=== PATIENT | female | born 1945 | race Caucasian/White ===

== ENCOUNTER → 2022-07-03 | Outpatient (CLI) | payer MEDICARE, BC ==
--- NOTE | 2022-07-16 18:41 | MM ---
Reason for Exam: Screening (asymptomatic). Last mammogram was performed 1 year(s) and 3 month(s) ago. Patient History: Menarche at age 13. First Full-Term at age 18. Postmenopausal. 2001, MG pre op needle loc RT on the Right side. Maternal aunt had breast cancer under age 50. Risk Values: Naty 5 year model risk: 1.3%. NCI Lifetime model risk: 2.4%. Prior Study Comparison: 03/27/2020 Bilateral MG screening mammo w CAD - 2, [place]. 03/28/2021 Bilateral MG screening mammo w [facility] - 2, [place]. Tissue Density: The breast tissue is heterogeneously dense. This may lower the sensitivity of mammography. Findings: Analyzed By CAD. No significant interval change. Benign calcifications present bilaterally. No suspicious groups of microcalcifications, spiculated or lobular masses, architectural distortion or other secondary signs of malignancy are mammographically apparent. Overall Assessment: Benign, BI-RAD 2 Management: Screening Mammogram of both breasts in 1 year. A negative mammogram report should not preclude additional follow up of suspicious palpable abnormalities. Patient should continue monthly self breast exam. A clinical breast exam by your physician is recommended on an annual basis and results should be correlated with mammographic findings. Electronically signed and approved by: Maxime Kenyon D.O. Radiologis
== END | disposition home or self-care (01) ==
LOC: RADMAMWWP 08:09
PROVIDERS: ATTEND Family Medicine
DX: Z12.31 Encounter for screening mammogram for malignant neoplasm of breast (principal); Z78.0 Asymptomatic menopausal state; Z80.3 Family history of malignant neoplasm of breast
CPT/HCPCS: 77063; 77067

== ENCOUNTER → 2023-07-18 | Outpatient (CLI) | payer MEDICARE, BC ==
[2023-07-18 14:33] LABS: HCT 42.4 % (37.2-46.3); HGB 13.9 d/dL (12.0-15.0); MCH 34.2 pg (27.0-32.0); MCHC 32.8 d/dL (32.0-37.0); MCV 104.4 FL (80.0-97.0); Mean Platelet Volume 11.3 FL (9.5-12.2); NRBC Per 100 WBC 0 X 10*3/uL (0.00-0.01); Platelet Count 245 X 10*3/uL (140-440); RBC 4.06 X 10*6/uL (4.10-5.20); RDW 13.5 % (11.5-14.5); WBC 8.03 X 10*3/uL (4.50-10.00)
[2023-07-18 14:41] LABS: Blood Urea Nitrogen 14.3 mg/dL (9.0-27.0)
[2023-07-18 14:42] LABS: Carbon Dioxide 27.2 mmol/L (21.6-31.8); Chloride 100 mmol/L (96-109); Potassium 4.5 mmol/L (3.5-5.5); Sodium 137 mmol/L (135-145)
== END | disposition home or self-care (01) ==
LOC: LABPAT 08:45
PROVIDERS: ATTEND Internal Medicine Interventional Cardiology
DX: Z01.812 Encounter for preprocedural laboratory examination (principal); I48.0 Paroxysmal atrial fibrillation
CPT/HCPCS: 80051; 82565; 84520; 85027

== ENCOUNTER 2023-07-22 10:45 | Day surgery (SDC) | payer MEDICARE, BC ==
[~2023-07-22 10:45] MED LIST: ALPRAZolam 0.25 MG TAB PO PRN; ALPRAZolam 0.5 MG TAB PO PRN; ASPIRIN 325 MG TAB PO ONE; NITROGLYCERIN SL TABS 0.4 MG TAB SUBLINGUAL PRN; SODIUM CHLORIDE 0.9% 1,000 ML in EMPTY BAG 1 BAG IV SCH
[2023-07-22 11:18] VITALS: RESP 16; TEMP 97.8
[2023-07-22] MEDS ORDERED: HEPARIN SODIUM 1,000 UN/ML (10ML VL) ONE (12:23)
[2023-07-22] MEDS ORDERED: VERAPAMIL 2.5 MG/ML 2 ML AMP ONE (12:24)
[2023-07-22] MEDS ORDERED: fentaNYL (PF) 50 MCG/ML 2 ML AMP ONE (12:24)
[2023-07-22] MEDS ORDERED: fentaNYL (PF) 50 MCG/1 ML VIAL IVP ONE (12:39)
[2023-07-22] MEDS ORDERED: MIDAZOLAM 2 MG/2 ML VIAL IVP ONE (12:43)
[2023-07-22] MEDS: LIDOCAINE 1% INJ 10MG/ML (20 ML MDV) SQ ONE ×2 (12:43→12:55)
[2023-07-22] MEDS ORDERED: VERAPAMIL SYRINGE (5 MG/10 ML) INTRAARTER ONE (12:46)
[2023-07-22] MEDS ORDERED: LIDOCAINE 1% INJ 10MG/ML (20 ML MDV) ONE (12:53)
[2023-07-22] MEDS ORDERED: HEPARIN SODIUM 1,000 UN/ML (10ML VL) IV ONE (12:59)
[2023-07-22] MEDS ORDERED: IOPAMIDOL-370 100ML BTL INJ ONE (13:11)
[2023-07-22] MEDS ORDERED: RX INFO: IV CONTRAST WAS GIVEN 1 EACH MISC MISCELLANE PRN (13:26)
[2023-07-22] MEDS ORDERED: SODIUM CHLORIDE 0.9% 1,000 ML IV SCH (13:30)
--- NOTE | 2023-07-22 13:33 | P.CARDCATH ---
Date of Procedure: 07/22/23 Description of Procedure: Cardiac Catheterization: The patient is a 78-year-old female with a history of CAD, PND, hypertension and hyperlipidemia as well as paroxysmal atrial fibrillation who has been complaining of progressive dyspnea and had an abnormal MPI. Recommendations were made regarding cardiac catheterization, the risks and the complications were discussed with the patient who is in full understanding and agreement. Procedure Description: Patient was brought to cardiac cath technician in fasting semi-sedated state after receiving Fentanyl and Benadryl achieiving moderate conscious sedated state. Using Xylocaine Anesthesia and modified Seldinger technique, a 6-Wallisian sheath was introduced in the radial radial artery . Because of the location of her carotid stent there was difficulty advancing the catheter at that time using Xylocaine anesthesia in the modified Seldinger technique and using micropuncture catheter a 6-Wallisian sheath was introduced in the right femoral artery. Subsequently, selective coronary angiography was performed using a 6-Wallisian 4 bend Leila catheter. Multiple views of the coronary artery including hemiaxial views were obtained. The left Leila catheter was used to cross the aortic valve and LVEDP was calculated. A 6-Wallisian pigtail catheter was positioned in the ascending aorta and images were obtained. Following that, catheter and sheath were removed. Hemostasis was obtained with deployment of vascular band . There was no immediate complication. Patient was returned to room in stable condition. Of note, the patient received a total of 4000 units of intravenous heparin as well as intra-arterial verapamil. The right femoral sheath was removed and hemostasis was obtained with deployment of an Angio-Seal. Findings: Left main: This is a large size vessel, bifurcating into LAD and left circumflex, left main has no obstructive disease LAD: This is a large size vessel, giving rise to a large diagonal branch. The LAD deep tapers in the distal third. The LAD has mild disease proximally of 10- 20% with no high-grade stenosis Left circumflex: This is a large nondominant vessel giving rise to 2 obtuse marginal branch with no evidence of high-grade stenosis RCA: This is a dominant vessel large in caliber the stented segment in the proximal RCA has no evidence of restenosis. Fluoroscopy bilateral carotid stent were noted and a watchman device was noted Aortogram aortogram was performed in the AP and revealed no evidence of aortic regurgitation there was flow through both carotid stent. Left Ventriculogram: Not performed Hemodynamics: There was no gradient across the aortic valve , LVEDP was 16-18 mmHg Conclusion: 1. Patent stent of the RCA 2. Mild disease in the LAD 3. Normal appearance of the ascending aorta 4. Right dominance Recommendations: The patient will continue on present medical regimen, she will be evaluated in regard to her paroxysmal atrial fibrillation and the need to undergo further intervention. The findings and the recommendations were discussed with the patient and the family and they were in full understanding and agreement. Duration of sedation is 30 minutes.
[2023-07-22 17:20] VITALS: BP 118/62; PULSE 64
[2023-07-22] MEDS ORDERED: carvediloL 6.25 MG TAB PO SCH (17:30)
[2023-07-23] MEDS ORDERED: ASPIRIN 81 MG PO SCH (09:00)
[2023-07-23] MEDS ORDERED: ATORVASTATIN 40 MG TAB PO SCH (09:00)
== END 2023-07-22 17:21 | disposition home or self-care (01) ==
LOC: CATHCVL 10:45
PROVIDERS: ATTEND Internal Medicine Interventional Cardiology
DX: I48.0 Paroxysmal atrial fibrillation (principal); I25.10 Atherosclerotic heart disease of native coronary artery without angina pectoris; I10 Essential (primary) hypertension; E78.5 Hyperlipidemia, unspecified; F10.90 Alcohol use, unspecified, uncomplicated; Z87.891 Personal history of nicotine dependence; Z79.82 Long term (current) use of aspirin; Z79.899 Other long term (current) drug therapy; Z95.828 Presence of other vascular implants and grafts
CPT/HCPCS: 93458; 93567; C1769 ×3; C1760; C1894 ×2; J2250; J2001; J1644; Q9967; J3010

== ENCOUNTER 2023-08-18 12:37 | Day surgery (SDC) | payer MEDICARE, BC ==
[~2023-08-18 12:37] MED LIST changes: -ALPRAZolam 0.25 MG TAB PO PRN; -ALPRAZolam 0.5 MG TAB PO PRN; -ASPIRIN 325 MG TAB PO ONE; -NITROGLYCERIN SL TABS 0.4 MG TAB SUBLINGUAL PRN; +SODIUM CHLORIDE 0.9% 1,000 ML IV SCH; -SODIUM CHLORIDE 0.9% 1,000 ML in EMPTY BAG 1 BAG IV SCH; +ceFAZolin 1 GM in SODIUM CHLORIDE 0.9% IRRIG BTL 250 ML IRRIGATION PRN
[2023-08-18 13:32] LABS: Basophils % (A) 1 %; Eosinophils # (A) 0.1 k/uL (0-0.7); Eosinophils % (A) 2 %; HCT 40.6 % (34.0-46.0); HGB 13.3 gm/dL (11.4-16.0); Lymphocytes # (A) 1.2 k/uL (1.0-4.8); Lymphocytes % (A) 18 %; MCH 34.3 pg (25.0-35.0); MCHC 32.9 g/dL (31.0-37.0); MCV 104.4 fL (80.0-100.0); Macrocytosis Slight; Mean Platelet Volume 8.8; Monocytes # (A) 0.6 k/uL (0-1.0); Monocytes % (A) 9 %; Neutrophils # (A) 4.6 k/uL (1.3-7.7); Neutrophils % (A) 70 %; Platelet Count 220 k/uL (150-450); RBC 3.89 m/uL (3.80-5.40); RDW 13.8 % (11.5-15.5); WBC 6.6 k/uL (3.8-10.6)
[2023-08-18 13:52] LABS: ALT 26 U/L (4-34); AST 28 U/L (14-36); African American GFR (CKD) 90 (>60 ml/min/1.73 sqM); Albumin 4.7 g/dL (3.5-5.0); Alkaline Phosphatase 66 U/L (38-126); Anion Gap 13 mmol/L; Blood Urea Nitrogen 16 mg/dL (7-17); Calcium 10.2 mg/dL (8.4-10.2); Carbon Dioxide 25 mmol/L (22-30); Chloride 97 mmol/L (98-107); Glucose 109 mg/dL (74-99); Non-African American GFR(CKD) 78 (>60 ml/min/1.73 sqM); Potassium 4.1 mmol/L (3.5-5.1); Sodium 135 mmol/L (137-145); Total Bilirubin 1.2 mg/dL (0.2-1.3); Total Protein 7.7 g/dL (6.3-8.2)
[2023-08-18] MEDS ORDERED: HEPARIN SODIUM 1,000 UN/ML (10ML VL) ONE (14:45)
[2023-08-18] MEDS ORDERED: LIDOCAINE 1% INJ 10MG/ML (20 ML MDV) ONE (14:45)
[2023-08-18] MEDS ORDERED: fentaNYL (PF) 50 MCG/ML 2 ML AMP ONE (14:51)
[2023-08-18] MEDS ORDERED: MIDAZOLAM 2 MG/2 ML VIAL ONE (14:51)
[2023-08-18] MEDS ORDERED: diphenhydrAMINE 50 MG/ML 1 ML VIAL ONE (14:51)
[2023-08-18] MEDS ORDERED: METOPROLOL TARTRATE 5 MG/5 ML VIAL IVP ONE (14:51)
[2023-08-18] MEDS ORDERED: ONDANSETRON 4 MG/2 ML VIAL ONE (14:51)
[2023-08-18] MEDS ORDERED: IOPAMIDOL-370 100ML BTL INJ ONE (15:09)
[2023-08-18] MEDS ORDERED: LIDOCAINE 1% INJ 10MG/ML (20 ML MDV) SQ ONE ×2 (15:54)
[2023-08-18] MEDS ORDERED: ACETAMINOPHEN TAB 325 MG TAB PO PRN (17:26)
[2023-08-18] MEDS ORDERED: ACETAMINOPHEN IV (For NPO) 1,000 MG in EMPTY BAG 1 BAG IVPB ONE (17:26)
[2023-08-18] MEDS: carvediloL 12.5 MG TAB PO SCH (18:21)
[2023-08-18] MEDS: FUROSEMIDE 20 MG TAB PO SCH (18:21)
--- NOTE | 2023-08-18 18:34 | P.EPPROC ---
- EP Procedure Note Electrophysiology Procedure Note: Diagnosis Paroxysmal atrial fibrillation with tachybradycardia syndrome with sudden pauses and presyncope/syncope Procedure Dual-chamber pacemaker implantation with conduction system pacing (left bundle pacing) Left upper extremity venogram Details Patient was brought to the EP lab in a fasting state. Written informed consent was obtained prior to the procedure. Conscious sedation provided by TOOLROOM HELPER. IV antibiotics administered. Local anesthesia administered. A 4 cm incision made in the pectoral area. Subfascial pocket made. Venous accesses obtained Venous sheaths placed. Leads placed in the right heart. 2 sets of pacing cables were used; one for backup temporary pacing and the other for assessment of current of injury and signal analysis. A 52 cm atrial pacing lead was first positioned in the RV apex for temporary pacing during mapping and conduction system pacing Thresholds were interrogated and backup high output pacing was provided This atrial lead was then removed from the right ventricle and later positioned in the right atrial appendage and the permanent lead A deflected sheath was prepped. A coronary sinus decapolar catheter was placed within this sheath. The catheter along with the sheath was then passed into the right heart, the catheter was prolapsed across the tricuspid valve, into the right ventricle and then further into the right ventricular outflow tract across the pulmonic valve into the pulmonary artery. This sheath was slid over this decapolar catheter into the RVOT. Thereafter the catheter last sheath assembly was withdrawn from the RVOT along the septum to the mid septal area. The sheath was appropriately to to map the right ventricular aspect of the septum. The decapolar catheter was withdrawn, the sheath flushed again and the screw-in pacing lead placed within the sheath. Further detailed unipolar pace-mapping of the septum was performed and once the appropriate based morphology was obtained on lead V1, the lead was screwed into the septum. The lead was screwed in 4-5 returns at a time while monitoring the current of injury, the pacing impedance changes and the paced QRS morphology. The stimulus to peak of V6 QRS was measured at each step. Once a QR or rSR pattern of paced QRS in lead V1 was obtained, a left bundle signal was sought. Impedance was measured and thresholds were measured. An impedance drop of 100-200 ohms but above 550 ohms was targeted along with an unchanged vector of the current of injury signal. The final positioning was based on the QRS morphology in lead V1 and a short stimulus to peak of the V6 QRS of less than 90 ms. The sheath was withdrawn, stability of the pacing lead deep in the septum was confirmed on BAPTISTE and HUNGARIAN views and the sheath was slipped and an adequate heel was provided for the lead. Unipolar and bipolar electrogram morphology obtained Atrial lead positioned in the right atrial appendage. Sensing, thresholds and impedances measured following positioning and securing the lead in the right atrial appendage Left bundle lead parameters; R waves 9 mV pacing impedance 722 ohms pacing threshold 0.5 V at 0.4 ms F bundle pacing Stim-Peak of V6 equals 44 ms QRS width 115 ms, right bundle type Atrial lead parameters patient didn't atrial fibrillation, for Shelley waves 3.5 mV pacing impedance 513 ohms Device resource manager forester: [employer] [address] [address]T DR Dual-chamber pacemaker device connected to the leads and placed in the subfascial pocket Patient tolerated the procedure well without acute complications Pacemaker programming AAI-DDD with mode switch on, base rate 60 beats a minute
[2023-08-19] MEDS: carvediloL 12.5 MG TAB PO SCH (07:07)
--- NOTE | 2023-08-19 08:36 | XR ---
EXAMINATION TYPE: XR chest 2V DATE OF EXAM: 08/19/2023 COMPARISON: NONE TECHNIQUE: PA and lateral views submitted. HISTORY: Lead placement check FINDINGS: Tiny bilateral pleural effusion. No pneumothorax.. Heart is mildly prominent with double lead cardiac device. Approximately overlies right atrium and distal lead overlies right ventricle. Vascular stent s are seen. Mild venous congestion. Throughout the left shoulder.. Osseous structures demonstrate hyp ertrophic and degenerative changes of the spine. Biapical pleural thickening. IMPRESSION: 1. Cardiac device appears in good position no sizable thorax. 2. Mild CHF.
[2023-08-19] MEDS ORDERED: ASPIRIN 81 MG PO SCH (09:00)
[2023-08-19] MEDS ORDERED: POTASSIUM CHLORIDE ER 20 MEQ TAB.ER PO SCH (09:00)
[2023-08-19] MEDS ORDERED: ATORVASTATIN 40 MG TAB PO SCH (09:00)
[2023-08-19] MEDS: FUROSEMIDE 20 MG TAB PO SCH (09:11)
[2023-08-19 09:26] VITALS: TEMP 98.1
[2023-08-19 11:55] VITALS: BP 106/71; PULSE 110; RESP 18
--- NOTE | 2023-08-20 08:20 | P.DS ---
Providers Attending physician: Mando Pagan Primary care physician: [facility] Course: Patient is doing well post dual-chamber pacemaker implant with conduction system pacing, left bundle No chest discomfort no dizziness no lightheadedness She sitting comfortably in a chair No soakage, no hematoma Heart sounds tachycardic and irregular Breath sounds are clear no rhonchi no crackles Blood pressure 106/72 mmHg pulse rate 120 beats a minute, afebrile Impression Paroxysmal atrial fibrillation RVR Tachybradycardia syndrome Status post dual-chamber pacemaker with conduction system pacing Plan Continue anticoagulation Increase the dose of carvedilol to 12.5 mg twice daily for rate control Follow-up with Dr. Hastings within one week to assess rate control atrial fibrillation Pacemaker was interrogated and is functioning normally Chest x-ray was reviewed, leads are in stable position Plan - Discharge Summary Discharge Rx Participant: No New Discharge Prescriptions: New carvediloL [Coreg*] 12.5 mg PO BID #180 tablet Discontinued carvediloL 6.25 mg PO BID No Action Ascorbic Acid [Vitamin C] 500 mg PO DAILY Krill/Om-3/Dha/Epa/Phospho/Ast [Krill Oil 500 mg Softgel] 1 tab PO DAILY Cranberry Fruit Extract [Cranberry] 500 mg PO DAILY Cholecalciferol [Vitamin D3 (25 Mcg = 1000 Iu)] 25 mcg PO DAILY Potassium Chloride ER [K-Dur 20] 20 meq PO DAILY Atorvastatin Calcium 40 mg PO DAILY Elderberry Gummies(Unk) 1 tab PO DAILY allopurinoL 100 mg PO BID Furosemide [Lasix] 20 mg PO BID Aspirin 81 mg PO DAILY Acetaminophen [Tylenol Arthritis] 650 mg PO DIRECTED PRN PRN Reason: Pain Discharge Medication List Acetaminophen [Tylenol Arthritis] 650 mg PO DIRECTED PRN 07/17/23 [History] Ascorbic Acid [Vitamin C] 500 mg PO DAILY 07/17/23 [History] Aspirin 81 mg PO DAILY 07/17/23 [History] Atorvastatin Calcium 40 mg PO DAILY 07/17/23 [History] Cholecalciferol [Vitamin D3 (25 Mcg = 1000 Iu)] 25 mcg PO DAILY 07/17/23 [History] Cranberry Fruit Extract [Cranberry] 500 mg PO DAILY 07/17/23 [History] Furosemide [Lasix] 20 mg PO BID 07/17/23 [History] Krill/Om-3/Dha/Epa/Phospho/Ast [Krill Oil 500 mg Softgel] 1 tab PO DAILY 07/17/23 [History] Potassium Chloride ER [K-Dur 20] 20 meq PO DAILY 07/17/23 [History] allopurinoL 100 mg PO BID 07/17/23 [History] Elderberry Gummies(Unk) 1 tab PO DAILY 08/13/23 [History] carvediloL [Coreg*] 12.5 mg PO BID #180 tablet 08/18/23 [Rx] Follow up Appointment(s)/Referral(s): Tj Hastings MD [STAFF PHYSICIAN] - 08/26/23 2:45 pm (Device clinic follow-up in one week) Patient Instructions/Handouts: Bradycardia (DC), Pacemaker (DC) Activity/Diet/Wound Care/Special Instructions: PATIENT EDUCATION MATERIAL Instructions following a heart rhythm device implant. 1. Keep dressing DRY for 5 DAYS. You may cover the area with Saran or Cling Wrap, prior to a shower. 2. The dressing will be removed in the Device Clinic at [facility]. Absorbable sutures were used to close the wound. 3. Avoid raising the left arm above the shoulder level. 4 week restriction 4. Avoid arm movements, like backscratching, rubbing the head, or pulling on a cord. 4 weeks restriction 5. Gentle range of motion movements of the shoulder, closest to the incision should be performed to avoid a frozen shoulder. (Pendulum exercises of the shoulder) 6. The opposite arm may be used freely. 7. Avoid driving for 7 days. 8. Avoid activities such as golfing, swimming, weed whacking, lifting more than 10 pounds weight, bowling, gymnastics and weight training/lifting. (6 weeks restriction) 9. Activities such as wood chopping with an axe, pull-ups in the gymnasium, po wer lifting, arc-welding, being close to home induction cooktops will always be a problem. 10. Arm sling is only a reminder not to raise the arm above the head. You do not need to keep the arm completely immobilized. Your free to move the arm and use it and for normal activities. In case of any problems, please call [facility] [place], @ [phone], Attention: Device Clinic Device clinic follow-up in 5 days Follow-up with primary principal gifts officer in 2-3 months Increase carvedilol to 12.5 g twice daily Discharge Disposition: HOME SELF-CARE
== END 2023-08-19 12:10 | disposition home or self-care (01) ==
LOC: CATHEP 12:37 → 3SCARD 17:03 → CATHEP 08-19 12:10
PROVIDERS: ATTEND Internal Medicine Clinical Cardiac Electrophysiology
DX: I48.0 Paroxysmal atrial fibrillation (principal); I49.5 Sick sinus syndrome; I11.0 Hypertensive heart disease with heart failure; I50.9 Heart failure, unspecified; E78.5 Hyperlipidemia, unspecified; I73.9 Peripheral vascular disease, unspecified; Z82.49 Family history of ischemic heart disease and other diseases of the circulatory system; Z79.82 Long term (current) use of aspirin; Z79.899 Other long term (current) drug therapy
CPT/HCPCS: 33208; 80053; 84443; 85025; 71046; C1769 ×2; C1730; C1887; C1892; C1898; C1785; J2250; J1200; J0690; J2405; J2001; J3010; J0131; Q9967

== ENCOUNTER 2023-09-04 11:33 | Inpatient (IN) | payer MEDICARE, BC ==
[2023-09-04 13:20] LABS: Basophils % (A) 1 %; Eosinophils # (A) 0.1 k/uL (0-0.7); Eosinophils % (A) 2 %; HCT 34.9 % (34.0-46.0); HGB 11.9 gm/dL (11.4-16.0); Lymphocytes % (A) 15 %; MCH 34.2 pg (25.0-35.0); MCV 100.6 fL (80.0-100.0); Macrocytosis Slight; Mean Platelet Volume 8.9; Monocytes # (A) 0.5 k/uL (0-1.0); Monocytes % (A) 8 %; Neutrophils # (A) 4.7 k/uL (1.3-7.7); Neutrophils % (A) 73 %; Platelet Count 197 k/uL (150-450); RBC 3.47 m/uL (3.80-5.40); WBC 6.5 k/uL (3.8-10.6)
--- NOTE | 2023-09-04 13:31 | XR ---
EXAMINATION TYPE: XR chest 2V DATE OF EXAM: 09/04/2023 COMPARISON: 08/19/2023 HISTORY: 78 year-old female shortness of breath, difficulty breathing TECHNIQUE: AP and lateral views FINDINGS: Left anterior chest wall pacemaker generator with right atrial and right ventricular leads. Heart bor derline in size. Pulmonary vascular prominence with small pleural effusions. IMPRESSION: CHF with pulmonary vascular congestion. Small pleural effusions with adjacent atelectasis and/or cons olidation.
[2023-09-04 13:32] LABS: ALT 46 U/L (4-34); AST 44 U/L (14-36); African American GFR (CKD) >90 (>60 ml/min/1.73 sqM); Albumin 4.1 g/dL (3.5-5.0); Alkaline Phosphatase 78 U/L (38-126); Anion Gap 11 mmol/L; Blood Urea Nitrogen 14 mg/dL (7-17); Calcium 9.6 mg/dL (8.4-10.2); Carbon Dioxide 23 mmol/L (22-30); Chloride 97 mmol/L (98-107); Glucose 95 mg/dL (74-99); Non-African American GFR(CKD) 86 (>60 ml/min/1.73 sqM); Potassium 4.1 mmol/L (3.5-5.1); Sodium 131 mmol/L (137-145); Total Bilirubin 1.1 mg/dL (0.2-1.3); Total Protein 6.7 g/dL (6.3-8.2)
[2023-09-04 13:34] LABS: Partial Thromboplastin Time 23.7 sec (22.0-30.0); Prothrombin Time 10.9 sec (10.0-12.5)
[2023-09-04 13:41] LABS: NT-Pro-B-Type Natriuretic Pept 2130 pg/mL
[2023-09-04] MEDS ORDERED: FUROSEMIDE 10 MG/ML 10 ML VIAL IV STA (13:50)
--- NOTE | 2023-09-04 14:08 | ED ---
SOB HPI - General Chief Complaint: Shortness of Breath Stated Complaint: SOB-post op Time Seen by Provider: 09/04/23 12:15 Source: patient Mode of arrival: ambulatory Limitations: no limitations - History of Present Illness Initial Comments: 78-year-old female with past medical history of congestive heart failure (EF 37% - jul 2023), coronary artery disease with stent placement, tachybradycardia syndrome with pacemaker, Sondra lee who presents to the emergency room with worsening shortness of breath. States for the past week she has had worsening exertional dyspnea and orthopnea. Admits to a mild nonproductive cough and wheezing. Denies chest pain. Recently had a pacemaker placed on the . She was discharged from the hospital in [place] with plans of having a cardioversion done on July 17. Noted that she had worsening lower extremity swelling and weight gain. She is on Lasix 20 mg twice daily without any missed doses. Denies urinary changes. Patient takes Coreg 12.5 BID and amiodarone 200 mg daily for rate control. 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 She follows with Dr. Hastings. Denies fevers or sick contacts. No other alleviating, precipitating or modifying factors - Related Data Home Medications Medication Instructions Recorded Confirmed Acetaminophen [Tylenol Arthritis] 650 mg PO Q8H PRN 07/17/23 09/04/23 Ascorbic Acid [Vitamin C] 500 mg PO DAILY 07/17/23 09/04/23 Aspirin 81 mg PO DAILY 07/17/23 09/04/23 Atorvastatin Calcium 40 mg PO DAILY 07/17/23 09/04/23 Cholecalciferol [Vitamin D3 (25 25 mcg PO DAILY 07/17/23 09/04/23 Mcg = 1000 Iu)] Furosemide [Lasix] 20 mg PO BID 07/17/23 09/04/23 Krill/Om-3/Dha/Epa/Phospho/Ast 1 cap PO DAILY 07/17/23 09/04/23 [Krill Oil 500 mg Softgel] Potassium Chloride ER [K-Dur 20] 20 meq PO DAILY 07/17/23 09/04/23 allopurinoL 100 mg PO BID 07/17/23 09/04/23 Elderberry Gummies(Unk) 1 tab PO DAILY 08/13/23 09/04/23 Amiodarone [Cordarone] 200 mg PO DAILY 09/04/23 09/04/23 Cranberry/Vitamin C/Vitamin D 1 tab PO DAILY 09/04/23 09/04/23 Gummies Previous Rx's Medication Instructions Recorded carvediloL [Coreg*] 12.5 mg PO BID #180 tablet 08/18/23 Allergies Allergy/AdvReac Type Severity Reaction Status Date / Time No Known Allergies Allergy Verified 09/04/23 14:34 Review of Systems ROS Statement: Those systems with pertinent positive or pertinent negative responses have been documented in the HPI. ROS Other: All systems not noted in ROS Statement are negative. Past Medical History Past Medical History: Coronary Artery Disease (CAD), Cancer, Hyperlipidemia, Hypertension, Osteoarthritis (OA), Sleep Apnea/CPAP/BIPAP, Vascular Disorder Additional Past Medical History / Comment(s): gout, starting to have heart failure. chemical stress test done - ?per pt. heart murmur long standing. bladder cancer 21 years ago. cannot wear the cpap machine. see Dr Pagan's H & P History of Any Multi-Drug Resistant Organisms: None Reported Past Surgical History: Cardiac Ablation, Heart Catheterization With Stent Additional Past Surgical History / Comment(s): bladder tumor removed, carotids stents bilaterally. 2 iliac stents , colonoscopy. Past Anesthesia/Blood Transfusion Reactions: Postoperative Nausea & Vomiting (PONV) Additional Past Anesthesia/Blood Transfusion Reaction / Comment(s): does not tolerate narcotics, ponv if not pre medicated Date of Last Stent Placement:: unk Past Psychological History: No Psychological Hx Reported Smoking Status: Former smoker, Heavy tobacco smoker Past Alcohol Use History: None Reported Past Drug Use History: None Reported - Past Family History Father Family Medical History: Myocardial Infarction (ID) Mother Additional Family Medical History / Comment(s): alzheimer, General Exam Limitations: no limitations General appearance: alert, in no apparent distress Head exam: Present: atraumatic, normocephalic, normal inspection Eye exam: Present: normal appearance, PERRL, EOMI. Absent: scleral icterus, conjunctival injection, periorbital swelling ENT exam: Present: normal exam, mucous membranes moist Neck exam: Present: normal inspection. Absent: tenderness, meningismus, lymphadenopathy Respiratory exam: Present: rales, other (Conversational dyspnea). Absent: respiratory distress, wheezes, rhonchi, stridor Cardiovascular Exam: Present: tachycardia, irregular rhythm, normal heart sounds. Absent: systolic murmur, diastolic murmur, rubs, gallop, clicks GI/Abdominal exam: Present: soft, normal bowel sounds. Absent: distended, tenderness, guarding, rebound, rigid Extremities exam: Present: normal inspection, full ROM, normal capillary refill. Absent: tenderness, pedal edema, joint swelling, calf tenderness Back exam: Present: normal inspection Neurological exam: Present: alert, oriented X3, CN II-XII intact Psychiatric exam: Present: normal affect, normal mood Skin exam: Present: warm, dry, intact, normal color. Absent: rash Course Vital Signs 09/04/23 09/04/23 09/04/23 12:13 14:14 15:46 Temperature 97.7 F Pulse Rate 124 H 112 H 113 H Respiratory 20 18 18 Rate Blood Pressure 133/88 123/90 108/92 O2 Sat by Pulse 98 96 96 Oximetry 09/04/23 09/04/23 09/04/23 15:59 17:12 18:58 Temperature Pulse Rate 112 H 106 H 97 Respiratory 18 18 18 Rate Blood Pressure 108/92 98/64 114/91 O2 Sat by Pulse 95 96 96 Oximetry Medical Decision Making - Medical Decision Making Was pt. sent in by a medical professional or institution (, PA, CORPORATE LAW ASSISTANT, urgent care, hospital, or snf...) When possible be specific @ -No Did you speak to anyone other than the patient for history (EMS, parent, family, police, friend...)? What history was obtained from this source @ -No Did you review nursing and triage notes (agree or disagree)? Why? @ -I reviewed and agree with nursing and triage notes Were old charts reviewed (outside hosp., previous admission, EMS record, old EKG, old radiological studies, urgent care reports/EKG's, snf records)? Report findings @ -I reviewed patient's procedure from August 18 Differential Diagnosis (chest pain, altered mental status, abdominal pain women, abdominal pain men, vaginal bleeding, weakness, fever, dyspnea, syncope, headache, dizziness, GI bleed, back pain, seizure, CVA, palpatations, mental health, musculoskeletal)? @ -Differential Dyspnea: Coronary syndrome, arrhythmia, tamponade, asthma, COPD, pulmonary embolism, pneumonia, pneumothorax, pulmonary effusion, anaphylaxis, diabetic ketoacidosis, flailed chest, pulmonary contusion, diaphragmatic rupture, anemia, neuromuscular, this is not meant to be an all-inclusive list. EKG interpreted by me (3pts min.). @ -Yes and demonstrates A. fib with a rate of 107. QRS 137. QTC of 438. Left bundle branch block. Negative for sgarbossa criteria X-rays interpreted by me (1pt min.). @ -Yes and demonstrates pleural effusions CT interpreted by me (1pt min.). @ -None done U/S interpreted by me (1pt. min.). @ -None done What testing was considered but not performed or refused? (CT, X-rays, U/S, labs)? Why? @ -None What meds were considered but not given or refused? Why? @ -None Did you discuss the management of the patient with other professionals (professionals i.e. , PA, CORPORATE LAW ASSISTANT, lab, RT, psych nurse, social and political studies professor, submarine element coordinator, teacher, investigation officer, adult protective caseworker)? Give summary @ -Spoke with Dr. Harley for admission Was smoking cessation discussed for >3mins.? @ -No Was critical care preformed (if so, how long)? @ -No Were there social determinants of health that impacted care today? How? (Homelessness, low income, unemployed, alcoholism, drug addiction, transportation, low edu. Level, literacy, decrease access to med. care, half-way, rehab)? @ -No Was there de-escalation of care discussed even if they declined (Discuss DNR or withdrawal of care, Hospice)? DNR status @ -No What co-morbidities impacted this encounter? (DM, HTN, Smoking, COPD, CAD, Cancer, CVA, ARF, Chemo, Hep., AIDS, mental health diagnosis, sleep apnea, morbid obesity)? @ -A. fib, CHF Was patient admitted / discharged? Hospital course, mention meds given and route, prescriptions, significant lab abnormalities, going to OR and other pertinent info. @ -Upon arrival patient placed in room 2. A thorough history and physical exam is performed. Patient placed on continuous pulse ox and cardiac monitoring. Patient is in A. fib with a rapid rate of 105-120. Laboratory studies are conducted. Chest x-ray was performed. Chest x-ray demonstrates pleural effusions with pulmonary vascular congestion. She was given 60 mg of Lasix IV. Recommend admission for diuresis. Patient will be admitted to [facility]. Spoke with Dr. Harley for admission Undiagnosed new problem with uncertain prognosis? @ -No Drug Therapy requiring intensive monitoring for toxicity (Heparin, Nitro, Insulin, Cardizem)? @ -No Were any procedures done? @ -No Diagnosis/symptom? @ -Acute respiratory insufficiency, acute exacerbation of CHF, A. fib with RVR Acute, or Chronic, or Acute on Chronic? @ -Acute on chronic Uncomplicated (without systemic symptoms) or Complicated (systemic symptoms)? @ -Complicated Side effects of treatment? @ -No Exacerbation, Progression, or Severe Exacerbation? @ -Yes Poses a threat to life or bodily function? How? (Chest pain, USA, ID, pneumonia, PE, COPD, DKA, ARF, appy, cholecystitis, CVA, Diverticulitis, Homicidal, Suicidal, threat to staff... and all critical care pts) @ -Yes patient has respiratory insufficiency - Lab Data Result diagrams: 09/04/23 12:55 09/04/23 12:55 Lab Results 09/04/23 09/04/23 09/04/23 Range/Units 12:55 12:55 12:55 WBC 6.5 (3.8-10.6) k/uL RBC 3.47 L (3.80-5.40) m/uL Hgb 11.9 (11.4-16.0) gm/dL Hct 34.9 (34.0-46.0) % MCV 100.6 H (80.0-100.0) fL MCH 34.2 (25.0-35.0) pg MCHC 34.0 (31.0-37.0) g/dL RDW 14.0 (11.5-15.5) % Plt Count 197 (150-450) k/uL MPV 8.9 Neutrophils % 73 % Lymphocytes % 15 % Monocytes % 8 % Eosinophils % 2 % Basophils % 1 % Neutrophils # 4.7 (1.3-7.7) k/uL Lymphocytes # 1.0 (1.0-4.8) k/uL Monocytes # 0.5 (0-1.0) k/uL Eosinophils # 0.1 (0-0.7) k/uL Basophils # 0.0 (0-0.2) k/uL Macrocytosis Slight PT 10.9 (10.0-12.5) sec INR 1.0 (<1.2) APTT 23.7 (22.0-30.0) sec Sodium 131 L (137-145) mmol/L Potassium 4.1 (3.5-5.1) mmol/L Chloride 97 L (98-107) mmol/L Carbon Dioxide 23 (22-30) mmol/L Anion Gap 11 mmol/L BUN 14 (7-17) mg/dL Creatinine 0.63 (0.52-1.04) mg/dL Est GFR (CKD-EPI)AfAm >90 (>60 ml/min/1.73 sqM) Est GFR (CKD-EPI)NonAf 86 (>60 ml/min/1.73 sqM) Glucose 95 (74-99) mg/dL Plasma Lactic Acid Nick (0.7-2.0) mmol/L Calcium 9.6 (8.4-10.2) mg/dL Total Bilirubin 1.1 (0.2-1.3) mg/dL AST 44 H (14-36) U/L ALT 46 H (4-34) U/L Alkaline Phosphatase 78 (38-126) U/L Troponin I (0.000-0.034) ng/mL NT-Pro-B Natriuret Pep 2130 pg/mL Total Protein 6.7 (6.3-8.2) g/dL Albumin 4.1 (3.5-5.0) g/dL 09/04/23 09/04/23 Range/Units 12:55 12:55 WBC (3.8-10.6) k/uL RBC (3.80-5.40) m/uL Hgb (11.4-16.0) gm/dL Hct (34.0-46.0) % MCV (80.0-100.0) fL MCH (25.0-35.0) pg MCHC (31.0-37.0) g/dL RDW (11.5-15.5) % Plt Count (150-450) k/uL MPV Neutrophils % % Lymphocytes % % Monocytes % % Eosinophils % % Basophils % % Neutrophils # (1.3-7.7) k/uL Lymphocytes # (1.0-4.8) k/uL Monocytes # (0-1.0) k/uL Eosinophils # (0-0.7) k/uL Basophils # (0-0.2) k/uL Macrocytosis PT (10.0-12.5) sec INR (<1.2) APTT (22.0-30.0) sec Sodium (137-145) mmol/L Potassium (3.5-5.1) mmol/L Chloride (98-107) mmol/L Carbon Dioxide (22-30) mmol/L Anion Gap mmol/L BUN (7-17) mg/dL Creatinine (0.52-1.04) mg/dL Est GFR (CKD-EPI)AfAm (>60 ml/min/1.73 sqM) Est GFR (CKD-EPI)NonAf (>60 ml/min/1.73 sqM) Glucose (74-99) mg/dL Plasma Lactic Acid Nick 1.2 (0.7-2.0) mmol/L Calcium (8.4-10.2) mg/dL Total Bilirubin (0.2-1.3) mg/dL AST (14-36) U/L ALT (4-34) U/L Alkaline Phosphatase (38-126) U/L Troponin I <0.012 (0.000-0.034) ng/mL NT-Pro-B Natriuret Pep pg/mL Total Protein (6.3-8.2) g/dL Albumin (3.5-5.0) g/dL Disposition Clinical Impression: Systolic congestive heart failure, Acute exacerbation of CHF (congestive heart failure) Disposition: ADMITTED IP TO THIS [facility] Condition: Stable Is patient prescribed a controlled substance at d/c from ED?: No Time of Disposition: 14:08 Decision to Admit Reason: Admit from EC Decision Date: 09/04/23 Decision Time: 14:08
[2023-09-04] MEDS ORDERED: NALOXONE 0.4 MG/ML 1 ML VIAL IV PRN (14:14)
[2023-09-04] MEDS ORDERED: ACETAMINOPHEN TAB 325 MG TAB PO PRN (14:15)
[2023-09-04] MEDS ORDERED: METOPROLOL TARTRATE 5 MG/5 ML VIAL IVP ONE (14:36)
--- NOTE | 2023-09-04 14:58 | P.HPIM ---
History of Present Illness H&P Date: 09/04/23 Chief Complaint: Shortness of breath * 70-year-old patient with past medical history of paroxysmal atrial fibrillation, status post dual-chamber pacemaker placement, coronary artery disease, hypertension, hyperlipidemia who recently underwent cardiac catheterization as well with patent stent of RCA, mild disease in LAD presents to the emergency department with complains of shortness of breath. Patient has ejection fraction of 37% checked in July 2023. 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 For the last 1 week patient has been complaining of worsening shortness of breath, orthopnea, exertional dyspnea. Patient has been complaining of nonproductive cough and wheezing as well. Patient states ever since discharge from the hospital she noted to have worsening lower extremity swelling and had gained weight. Patient has been taking Lasix did not miss any doses however continue to have worsening shortness of breath. Patient states she has been having worsening symptoms for 1 week, however she did not come to the hospital, patient states she regrets she should have been in sooner * Workup in ER included CBC which were WBC 6.5 hemoglobin 11.9 platelet count of 197, INR of 1 serum chemistry showed sodium 131 chloride 97 BUN 14 creatinine 0.63, ALT of 746 AST 44 * Initial troponin obtained 0.012, N-terminal proBNP, 2130 ' * Chest x-ray obtained in ER showed pulmonary vascular congestion small pleural effusion * A she was given 1 dose of IV Lasix and admitted to medical floor with consultation from cardiology REVIEW OF SYSTEMS: Shortness of breath, wheezing, orthopnea or lower extremity swelling CONSTITUTIONAL: No fever, no malaise, no fatigue. HEENT: No recent visual problems or hearing problems. Denied any sore throat. CARDIOVASCULAR: No chest pain, orthopnea, PND, no palpitations, no syncope. PULMONARY: Shortness of breath, wheezing, orthopnea or lower extremity swelling GASTROINTESTINAL: No diarrhea, no nausea, no vomiting, no abdominal pain. NEUROLOGICAL: No headaches, no weakness, no numbness. HEMATOLOGICAL: Denies any bleeding or petechiae. GENITOURINARY: Denies any burning micturition, frequency, or urgency. MUSCULOSKELETAL/RHEUMATOLOGICAL: Denies any joint pain, swelling, or any muscle pain. ENDOCRINE: Denies any polyuria or polydipsia. PHYSICAL EXAMINATION: GENERAL: The patient is alert and oriented x3, not in any acute distress. Well developed, well nourished. HEENT: Pupils are round and equally reacting to light. EOMI. CARDIOVASCULAR: S1 and S2 present. No murmurs, rubs, or gallops. Lower extremity edema noted PULMONARY: Decreased breath sounds bilaterally ABDOMEN: Soft, nontender, nondistended, normoactive bowel sounds. No palpable organomegaly. MUSCULOSKELETAL: No joint swelling or deformity. EXTREMITIES: No cyanosis, clubbing, or pedal edema. NEUROLOGICAL: Gross neurological examination did not reveal any focal deficits. SKIN: No rashes. Past Medical History Past Medical History: Coronary Artery Disease (CAD), Cancer, Hyperlipidemia, Hypertension, Osteoarthritis (OA), Sleep Apnea/CPAP/BIPAP, Vascular Disorder Additional Past Medical History / Comment(s): gout, starting to have heart failure. chemical stress test done - ?per pt. heart murmur long standing. bladder cancer 21 years ago. cannot wear the cpap machine. see Dr Pagan's H & P History of Any Multi-Drug Resistant Organisms: None Reported Past Surgical History: Cardiac Ablation, Heart Catheterization With Stent Additional Past Surgical History / Comment(s): bladder tumor removed, carotids stents bilaterally. 2 iliac stents , colonoscopy. Past Anesthesia/Blood Transfusion Reactions: Postoperative Nausea & Vomiting (PONV) Additional Past Anesthesia/Blood Transfusion Reaction / Comment(s): does not tolerate narcotics, ponv if not pre medicated Date of Last Stent Placement:: unk Past Psychological History: No Psychological Hx Reported Smoking Status: Former smoker, Heavy tobacco smoker Past Alcohol Use History: None Reported Past Drug Use History: None Reported - Past Family History Father Family Medical History: Myocardial Infarction (CT) Mother Additional Family Medical History / Comment(s): alzheimer, Medications and Allergies Home Medications Medication Instructions Recorded Confirmed Type Acetaminophen [Tylenol Arthritis] 650 mg PO Q8H PRN 07/17/23 09/04/23 History Ascorbic Acid [Vitamin C] 500 mg PO DAILY 07/17/23 09/04/23 History Aspirin 81 mg PO DAILY 07/17/23 09/04/23 History Atorvastatin Calcium 40 mg PO DAILY 07/17/23 09/04/23 History Cholecalciferol [Vitamin D3 (25 25 mcg PO DAILY 07/17/23 09/04/23 History Mcg = 1000 Iu)] Furosemide [Lasix] 20 mg PO BID 07/17/23 09/04/23 History Krill/Om-3/Dha/Epa/Phospho/Ast 1 cap PO DAILY 07/17/23 09/04/23 History [Krill Oil 500 mg Softgel] Potassium Chloride ER [K-Dur 20] 20 meq PO DAILY 07/17/23 09/04/23 History allopurinoL 100 mg PO BID 07/17/23 09/04/23 History Elderberry Gummies(Unk) 1 tab PO DAILY 08/13/23 09/04/23 History carvediloL [Coreg*] 12.5 mg PO BID #180 tablet 08/18/23 09/04/23 Rx Amiodarone [Cordarone] 200 mg PO DAILY 09/04/23 09/04/23 History Cranberry/Vitamin C/Vitamin D 1 tab PO DAILY 09/04/23 09/04/23 History Gummies Allergies Allergy/AdvReac Type Severity Reaction Status Date / Time No Known Allergies Allergy Verified 09/04/23 14:34 Physical Exam Vitals: Vital Signs Temp Pulse Resp BP Pulse Ox 09/04/23 14:14 112 H 18 123/90 96 09/04/23 12:13 97.7 F 124 H 20 133/88 98 Intake and Output 09/03/23 09/04/23 09/04/23 22:59 06:59 14:59 Other: Weight 61.235 kg Results CBC & Chem 7: 09/04/23 12:55 09/04/23 12:55 Labs: Abnormal Lab Results - Last 24 Hours (Table) 09/04/23 09/04/23 Range/Units 12:55 12:55 RBC 3.47 L (3.80-5.40) m/uL MCV 100.6 H (80.0-100.0) fL Sodium 131 L (137-145) mmol/L Chloride 97 L (98-107) mmol/L AST 44 H (14-36) U/L ALT 46 H (4-34) U/L Assessment and Plan Assessment: Assessment and plan * Acute on chronic congestive heart failure systolic dysfunction * Paroxysmal atrial fibrillation with rapid ventricular response * Coronary artery disease * Hyperlipidemia * History of sick sinus syndrome status post pacemaker in place * In regards to congestive heart failure, continue patient on IV Lasix 40 mg twice a day, continue to monitor intake and output, * In regards to atrial fibrillation continue patient on Coreg, patient to be given 1 dose of Lopressor IV in ER him a continue amiodarone * In regards to coronary artery disease continue patient on aspirin, Lipitor * In regards to sick sinus syndrome continue telemetry monitoring status post pacemaker * Cardiology consulted * CODE STATUS is full code Time with Patient: Greater than 30
[2023-09-04] MEDS: carvediloL 12.5 MG TAB PO SCH (19:22)
[2023-09-04] MEDS: FUROSEMIDE 10 MG/ML 4 ML VIAL IV SCH (20:48)
[2023-09-04] MEDS: allopurinoL 100 MG TAB PO SCH (20:48)
[2023-09-05 07:32] LABS: Basophils % (A) 0 %; Eosinophils # (A) 0.1 k/uL (0-0.7); Eosinophils % (A) 2 %; HCT 36.8 % (34.0-46.0); HGB 12.3 gm/dL (11.4-16.0); Lymphocytes % (A) 14 %; MCHC 33.3 g/dL (31.0-37.0); MCV 102.1 fL (80.0-100.0); Macrocytosis Slight; Mean Platelet Volume 8.6; Monocytes # (A) 0.7 k/uL (0-1.0); Monocytes % (A) 9 %; Neutrophils # (A) 5.6 k/uL (1.3-7.7); Neutrophils % (A) 73 %; Platelet Count 208 k/uL (150-450); RBC 3.61 m/uL (3.80-5.40); RDW 13.9 % (11.5-15.5); WBC 7.6 k/uL (3.8-10.6)
[2023-09-05 07:48] LABS: African American GFR (CKD) 88 (>60 ml/min/1.73 sqM); Anion Gap 10 mmol/L; Blood Urea Nitrogen 16 mg/dL (7-17); Calcium 9.6 mg/dL (8.4-10.2); Carbon Dioxide 28 mmol/L (22-30); Chloride 96 mmol/L (98-107); Glucose 90 mg/dL (74-99); Non-African American GFR(CKD) 76 (>60 ml/min/1.73 sqM); Potassium 4.1 mmol/L (3.5-5.1); Sodium 134 mmol/L (137-145)
[2023-09-05] MEDS ORDERED: carvediloL 12.5 MG TAB PO SCH (08:45)
[2023-09-05] MEDS ORDERED: AMIODARONE 200 MG TAB PO SCH (09:00)
[2023-09-05] MEDS: POTASSIUM CHLORIDE ER 20 MEQ TAB.ER PO SCH (09:25)
[2023-09-05] MEDS: ATORVASTATIN 40 MG TAB PO SCH (09:25)
[2023-09-05] MEDS: ASCORBIC ACID 500 MG TAB PO SCH (09:25)
[2023-09-05] MEDS: ASPIRIN 81 MG PO SCH (09:26)
[2023-09-05] MEDS: ENOXAPARIN 40 MG/0.4 ML SYRINGE SQ SCH (09:26)
[2023-09-05] MEDS: CHOLECALCIFEROL 25 MCG (1000 IU) TABLET PO SCH (09:26)
[2023-09-05] MEDS: carvediloL 12.5 MG TAB PO SCH ×2 (09:27→16:41)
--- NOTE | 2023-09-05 12:51 | P.PN ---
Subjective Progress Note Date: 09/05/23 * 70-year-old patient with past medical history of paroxysmal atrial fibrillation, status post dual-chamber pacemaker placement, coronary artery disease, hypertension, hyperlipidemia who recently underwent cardiac catheterization as well with patent stent of RCA, mild disease in LAD presents to the emergency department with complains of shortness of breath. Patient has ejection fraction of 37% checked in July 2023. 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 For the last 1 week patient has been complaining of worsening shortness of breath, orthopnea, exertional dyspnea. Patient has been complaining of nonproductive cough and wheezing as well. Patient states ever since discharge from the hospital she noted to have worsening lower extremity swelling and had gained weight. Patient has been taking Lasix did not miss any doses however continue to have worsening shortness of breath. Patient states she has been having worsening symptoms for 1 week, however she did not come to the hospital, patient states she regrets she should have been in sooner * Workup in ER included CBC which were WBC 6.5 hemoglobin 11.9 platelet count of 197, INR of 1 serum chemistry showed sodium 131 chloride 97 BUN 14 creatinine 0.63, ALT of 746 AST 44 * Initial troponin obtained 0.012, N-terminal proBNP, 2130 ' * Chest x-ray obtained in ER showed pulmonary vascular congestion small pleural effusion * she was given 1 dose of IV Lasix and admitted to medical floor with consultation from cardiology * 09/05/23: Patient seen and evaluated and bedside, patient was in ER 2 during my evaluation. Continue patient on Lasix, patient does of Coreg was increased as well secondary to persistent tachycardia. Patient already on amiodarone, cardiology consulted pending evaluation REVIEW OF SYSTEMS: Shortness of breath, wheezing, orthopnea improved >> lower extremity swelling present CONSTITUTIONAL: No fever, no malaise, no fatigue. HEENT: No recent visual problems or hearing problems. Denied any sore throat. CARDIOVASCULAR: No chest pain, orthopnea, PND, no palpitations, no syncope. PULMONARY: Shortness of breath, wheezing, orthopnea or lower extremity swelling GASTROINTESTINAL: No diarrhea, no nausea, no vomiting, no abdominal pain. NEUROLOGICAL: No headaches, no weakness, no numbness. HEMATOLOGICAL: Denies any bleeding or petechiae. GENITOURINARY: Denies any burning micturition, frequency, or urgency. MUSCULOSKELETAL/RHEUMATOLOGICAL: Denies any joint pain, swelling, or any muscle pain. ENDOCRINE: Denies any polyuria or polydipsia. PHYSICAL EXAMINATION: GENERAL: The patient is alert and oriented x3, not in any acute distress. Well developed, well nourished. HEENT: Pupils are round and equally reacting to light. EOMI. CARDIOVASCULAR: S1 and S2 present. No murmurs, rubs, or gallops. Lower extremity edema noted PULMONARY: Decreased breath sounds bilaterally ABDOMEN: Soft, nontender, nondistended, normoactive bowel sounds. No palpable organomegaly. MUSCULOSKELETAL: No joint swelling or deformity. EXTREMITIES: No cyanosis, clubbing, or pedal edema. NEUROLOGICAL: Gross neurological examination did not reveal any focal deficits. SKIN: No rashes. Objective - Vital Signs Vital signs: Vital Signs Temp 97.6 F 09/05/23 12:00 Pulse 114 H 09/05/23 12:00 Resp 16 09/05/23 12:00 BP 85/56 09/05/23 12:00 Pulse Ox 97 09/05/23 12:00 FiO2 Intake & Output 09/04/23 09/05/23 09/05/23 18:59 06:59 18:59 Intake Total 10 Balance 10 Weight 61.235 kg Intake: IV 10 Invasive Line 1 10 - Labs CBC & Chem 7: 09/05/23 06:15 09/05/23 06:15 Labs: Abnormal Lab Results - Last 24 Hours (Table) 09/04/23 09/04/23 09/05/23 Range/Units 12:55 12:55 06:15 RBC 3.47 L 3.61 L (3.80-5.40) m/uL MCV 100.6 H 102.1 H (80.0-100.0) fL Sodium 131 L (137-145) mmol/L Chloride 97 L (98-107) mmol/L AST 44 H (14-36) U/L ALT 46 H (4-34) U/L 09/05/23 Range/Units 06:15 RBC (3.80-5.40) m/uL MCV (80.0-100.0) fL Sodium 134 L (137-145) mmol/L Chloride 96 L (98-107) mmol/L AST (14-36) U/L ALT (4-34) U/L Assessment and Plan Assessment: Assessment and plan * Acute on chronic congestive heart failure systolic dysfunction * Paroxysmal atrial fibrillation with rapid ventricular response * Coronary artery disease * Hyperlipidemia * History of sick sinus syndrome status post pacemaker in place * In regards to congestive heart failure, continue patient on IV Lasix 40 mg twice a day, continue to monitor intake and output, monitor daily weights * In regards to atrial fibrillation continue patient on Coreg, dose increased to 25 mg twice a day withholding per meter, continue amiodarone * In regards to coronary artery disease continue patient on aspirin, Lipitor * In regards to sick sinus syndrome continue telemetry monitoring status post pacemaker * Cardiology consulted pending evaluation * CODE STATUS is full code Time with Patient: Greater than 30
--- NOTE | 2023-09-05 16:22 | P.CRDCN ---
History of Present Illness Consult date: 09/05/23 Chief complaint: Shortness of breath History of present illness: The patient is a pleasant 78-year-old female patient with a past medical history significant for coronary artery disease with a prior stenting of the right coronary artery as well as persistent atrial fibrillation and also history of congestive heart failure as well as history of gastrointestinal bleeding status post placement of the watchman device and hypertension and dyslipidemia and permanent pacemaker. The patient presented to the emergency department complaining of shortness of breath started about 3 weeks ago. She describes progressive exertional dyspnea and orthopnea and also progressive bilateral lower extremity edema. No pain in the chest and no dizziness or lightheadedness and no feeling of heart racing or fluttering and no presyncope or syncope. The shortness of breath lately has been interfering with her daily activities and she decided to come to the hospital. She underwent further workup including chest x-ray showed findings consistent with pulmonary vascular congestion. ENT proBNP came in to be elevated at 3000. The EKG showed atrial fibrillation with RBBB and diffuse nonspecific ST and T wave abnormalities and heart rate above 100 beats per minutes. Recently she underwent permanent pacemaker implantation and that was a dual-chamber pacemaker. Beside that recently she was started on amiodarone in a plan to undergo cardioversion. Also present heart catheterization revealed patent stent in the right coronary artery was mild disease involving the left coronary system. The patient was diagnosed with heart failure and she was admitted to the hospital and started on Lasix IV and she is already feeling better. The edema in the lower extremity is has improved. The shortness of breath also has been improved. She was diagnosed was congestive heart failure in the past and she stated that she has been compliant with all of her medications and also she has been compliant was low sodium diet. The examination is remarkable for very mild bilateral lower extremity edema with diminished breathing sounds bilaterally and irregular rh ythm with tachycardia noted. Assessment Heart failure, with biventricular failure, the etiology is unknown at this point Atrial fibrillation with uncontrolled heart rate Persistent atrial fibrillation History of gastrointestinal bleeding status post placement of the watchman device Coronary artery disease with previous stenting of the RCA Hypotension Status post permanent pacemaker Plan Decrease the dose of carvedilol in the light of low blood pressure Increase the dose of amiodarone Continue IV Lasix Continue monitoring the kidney function and electrolytes No need to repeat the echo since she stated that she underwent an echocardiogram in our office recently would obtain a copy of it Follow-up with the patient Past Medical History Past Medical History: Atrial Fibrillation, Coronary Artery Disease (CAD), Cancer, Hyperlipidemia, Hypertension, Osteoarthritis (OA), Sleep Apnea/CPAP/BIPAP, Syncope, Vascular Disorder Additional Past Medical History / Comment(s): Gout, heart murmur, bladder cancer 21 years ago. cannot wear the cpap machine. History of Any Multi-Drug Resistant Organisms: None Reported Past Surgical History: Cardiac Ablation, Heart Catheterization With Stent, Pacemaker Additional Past Surgical History / Comment(s): bladder tumor removed, carotids stents bilaterally. 2 iliac stents , colonoscopy. Watchman device-anticoag is ASA, PPM 08/18/2023 Past Anesthesia/Blood Transfusion Reactions: Postoperative Nausea & Vomiting (PONV) Additional Past Anesthesia/Blood Transfusion Reaction / Comment(s): does not tolerate narcotics, ponv if not pre medicated Date of Last Stent Placement:: unk Type of Cardiac Device: Permanent Pacemaker Device Placement Date:: 08/14/2023 Smoking Status: Former smoker, Heavy tobacco smoker - Past Family History Father Family Medical History: Myocardial Infarction ([place]) Mother Additional Family Medical History / Comment(s): alzheimer, Medications and Allergies Home Medications Medication Instructions Recorded Confirmed Type Acetaminophen [Tylenol Arthritis] 650 mg PO Q8H PRN 07/17/23 09/04/23 History Ascorbic Acid [Vitamin C] 500 mg PO DAILY 07/17/23 09/04/23 History Aspirin 81 mg PO DAILY 07/17/23 09/04/23 History Atorvastatin Calcium 40 mg PO DAILY 07/17/23 09/04/23 History Cholecalciferol [Vitamin D3 (25 25 mcg PO DAILY 07/17/23 09/04/23 History Mcg = 1000 Iu)] Furosemide [Lasix] 20 mg PO BID 07/17/23 09/04/23 History Krill/Om-3/Dha/Epa/Phospho/Ast 1 cap PO DAILY 07/17/23 09/04/23 History [Krill Oil 500 mg Softgel] Potassium Chloride ER [K-Dur 20] 20 meq PO DAILY 07/17/23 09/04/23 History allopurinoL 100 mg PO BID 07/17/23 09/04/23 History Elderberry Gummies(Unk) 1 tab PO DAILY 08/13/23 09/04/23 History carvediloL [Coreg*] 12.5 mg PO BID #180 tablet 08/18/23 09/04/23 Rx Amiodarone [Cordarone] 200 mg PO DAILY 09/04/23 09/04/23 History Cranberry/Vitamin C/Vitamin D 1 tab PO DAILY 09/04/23 09/04/23 History Gummies Allergies Allergy/AdvReac Type Severity Reaction Status Date / Time No Known Allergies Allergy Verified 09/04/23 14:34 Physical Exam Vitals: Vital Signs Temp Pulse Pulse Resp BP BP BP 09/05/23 15:53 97.1 F L 97 16 95/56 09/05/23 12:00 97.6 F 114 H 16 85/56 96/63 09/05/23 11:37 110 H 18 118/78 09/05/23 08:00 112 H 24 111/87 09/05/23 04:00 105 H 18 112/89 09/05/23 02:00 103 H 19 112/88 09/05/23 00:00 111 H 16 111/82 09/04/23 22:00 100 18 111/86 09/04/23 18:58 97 18 114/91 09/04/23 17:12 106 H 18 98/64 Pulse Ox 09/05/23 15:53 96 09/05/23 12:00 97 09/05/23 11:37 96 09/05/23 08:00 96 09/05/23 04:00 95 09/05/23 02:00 96 09/05/23 00:00 95 09/04/23 22:00 96 09/04/23 18:58 96 09/04/23 17:12 96 Intake and Output 09/05/23 09/05/23 09/05/23 06:59 14:59 22:59 Intake Total 128 Output Total 550 Balance -422 Intake: IV 10 Invasive Line 1 10 Oral 118 Output: Urine 550 Other: Voiding Method Toilet # Voids 1 # Bowel Movements 1 Results 09/05/23 06:15 09/05/23 06:15 CBC 09/05/23 Range/Units 06:15 WBC 7.6 (3.8-10.6) k/uL RBC 3.61 L (3.80-5.40) m/uL Hgb 12.3 (11.4-16.0) gm/dL Hct 36.8 (34.0-46.0) % Plt Count 208 (150-450) k/uL Comprehensive Metabolic Panel 09/05/23 Range/Units 06:15 Sodium 134 L (137-145) mmol/L Potassium 4.1 (3.5-5.1) mmol/L Chloride 96 L (98-107) mmol/L Carbon Dioxide 28 (22-30) mmol/L BUN 16 (7-17) mg/dL Creatinine 0.75 (0.52-1.04) mg/dL Glucose 90 (74-99) mg/dL Calcium 9.6 (8.4-10.2) mg/dL Current Medications Generic Name Dose Route Start Last Admin Trade Name Freq PRN Reason Stop Dose Admin Acetaminophen 650 mg 09/04/23 14:15 Acetaminophen Tab 325 Mg Tab PO Q8H PRN Mild Pain Allopurinol 100 mg 09/04/23 21:00 09/04/23 20:48 Allopurinol 100 Mg Tab PO 100 mg BID PHAN Administration Ascorbic Acid 500 mg 09/05/23 09:00 09/05/23 09:25 Ascorbic Acid 500 Mg Tab PO 500 mg DAILY PHAN Administration Aspirin 81 mg 09/05/23 09:00 09/05/23 09:26 Aspirin 81 Mg PO 81 mg DAILY PHAN Administration Atorvastatin Calcium 40 mg 09/05/23 09:00 09/05/23 09:25 Atorvastatin 40 Mg Tab PO 40 mg DAILY PHAN Administration Carvedilol 12.5 mg 09/05/23 17:30 Carvedilol 12.5 Mg Tab PO AC-BID PHAN Cholecalciferol 25 mcg 09/05/23 09:00 09/05/23 09:26 Cholecalciferol 25 Mcg (1000 Iu) Tablet PO 25 mcg DAILY PHAN Administration Enoxaparin Sodium 40 mg 09/05/23 09:00 09/05/23 09:26 Enoxaparin 40 Mg/0.4 Ml Syringe SQ Not Given DAILY PHAN Furosemide 40 mg 09/04/23 21:00 09/04/23 20:48 Furosemide 10 Mg/Ml 4 Ml Vial IV 40 mg BID PHAN Administration Naloxone HCl 0.2 mg 09/04/23 14:14 Naloxone 0.4 Mg/Ml 1 Ml Vial IV Q2M PRN Opioid Reversal Potassium Chloride 20 meq 09/05/23 09:00 09/05/23 09:25 Potassium Chloride Er 20 Meq Tab.Er PO 20 meq DAILY PHAN Administration Intake and Output 09/05/23 09/05/23 09/05/23 06:59 14:59 22:59 Intake Total 128 Output Total 550 Balance -422 Intake: IV 10 Invasive Line 1 10 Oral 118 Output: Urine 550 Other: Voiding Method Toilet # Voids 1 # Bowel Movements 1 09/05/23 06:15 09/05/23 06:15
[2023-09-05] MEDS: AMIODARONE 200 MG TAB PO SCH (18:17)
[2023-09-05] MEDS: FUROSEMIDE 10 MG/ML 4 ML VIAL IV SCH (18:17)
[2023-09-05] MEDS: allopurinoL 100 MG TAB PO SCH (18:18)
[2023-09-05] MEDS: MELATONIN 3 MG TABLET PO SCH (18:55)
[2023-09-06] MEDS: carvediloL 12.5 MG TAB PO SCH ×2 (05:41→16:42)
[2023-09-06] MEDS: allopurinoL 100 MG TAB PO SCH ×2 (08:09→21:05)
[2023-09-06] MEDS: ASCORBIC ACID 500 MG TAB PO SCH (08:10)
[2023-09-06] MEDS: ATORVASTATIN 40 MG TAB PO SCH (08:10)
[2023-09-06] MEDS: FUROSEMIDE 10 MG/ML 4 ML VIAL IV SCH (08:10)
[2023-09-06] MEDS: ASPIRIN 81 MG PO SCH (08:10)
[2023-09-06] MEDS: CHOLECALCIFEROL 25 MCG (1000 IU) TABLET PO SCH (08:10)
[2023-09-06] MEDS: ENOXAPARIN 40 MG/0.4 ML SYRINGE SQ SCH (08:10)
[2023-09-06] MEDS: AMIODARONE 200 MG TAB PO SCH ×2 (08:10→21:05)
[2023-09-06] MEDS: POTASSIUM CHLORIDE ER 20 MEQ TAB.ER PO SCH (08:10)
--- NOTE | 2023-09-06 11:07 | P.PN ---
Subjective Progress Note Date: 09/06/23 Principal diagnosis: A. HIEU The patient is a pleasant 78-year-old female patient with a past medical history significant for coronary artery disease with a prior stenting of the right coronary artery as well as persistent atrial fibrillation and also history of congestive heart failure as well as history of gastrointestinal bleeding status post placement of the watchman device and hypertension and dyslipidemia and permanent pacemaker. The patient presented to the emergency department complaining of shortness of breath started about 3 weeks ago. She describes progressive exertional dyspnea and orthopnea and also progressive bilateral lower extremity edema. No pain in the chest and no dizziness or lightheadedness and no feeling of heart racing or fluttering and no presyncope or syncope. The shortness of breath lately has been interfering with her daily activities and she decided to come to the hospital. She underwent further workup including chest x-ray showed findings consistent with pulmonary vascular congestion. ENT proBNP came in to be elevated at 3000. The EKG showed atrial fibrillation with RBBB and diffuse nonspecific ST and T wave abnormalities and heart rate above 100 beats per minutes. Recently she underwent permanent pacemaker implantation and that was a dual-chamber pacemaker. Beside that recently she was started on amiodarone in a plan to undergo cardioversion. Also present heart catheterization revealed patent stent in the right coronary artery was mild disease involving the left coronary system. The patient was diagnosed with hea rt failure and she was admitted to the hospital and started on Lasix IV and she is already feeling better. The edema in the lower extremity is has improved. The shortness of breath also has been improved. She was diagnosed was congestive heart failure in the past and she stated that she has been compliant with all of her medications and also she has been compliant was low sodium diet. The examination is remarkable for very mild bilateral lower extremity edema with diminished breathing sounds bilaterally and irregular rhythm with tachycardia noted. 09/06/2023 The patient was seen and evaluated this morning. Her heart failure has definitely improved. She continues to be in atrial fibrillation with overall controlled heart rates. The pressure has been marginal. I'm going to decrease the dose of Lasix IV. If the pressure remains marginal after switch her to oral diuretics she might benefit from DC carvedilol and start the patient on metoprolol succinate or tartrate. She is on amiodarone. The examination is remarkable for very mild bilateral lower extremities edema and diminished breathing sounds bilaterally and irregular rhythm Assessment Heart failure, with biventricular failure, the etiology is unknown at this point Atrial fibrillation with uncontrolled heart rate Persistent atrial fibrillation History of gastrointestinal bleeding status post placement of the watchman device Coronary artery disease with previous stenting of the RCA Hypotension Status post permanent pacemaker Plan Decrease dose of IV Lasix Consider switch carvedilol to metoprolol if the pressure remains marginal Monitor the kidney function and electrolytes Follow-up with the patient Objective - Vital Signs Vital signs: Vital Signs Temp 98.8 F 09/06/23 08:16 Pulse 103 H 09/06/23 08:16 Resp 18 09/06/23 08:16 BP 99/62 09/06/23 08:16 Pulse Ox 97 09/06/23 08:16 FiO2 Intake & Output 09/05/23 09/06/23 09/06/23 18:59 06:59 18:59 Intake Total 128 20 10 Output Total 975 600 200 Balance -847 -580 -190 Weight 76.6 kg Intake: IV 10 20 10 Invasive Line 1 10 20 10 Oral 118 Output: Urine 975 600 200 Other: Voiding Method Toilet Toilet Toilet # Voids 1 1 # Bowel Movements 1 - Labs CBC & Chem 7: 09/05/23 06:15 09/05/23 06:15
[2023-09-06 11:33] LABS: HCT 36.2 % (34.0-46.0); HGB 12.1 gm/dL (11.4-16.0); MCH 34.5 pg (25.0-35.0); MCHC 33.5 g/dL (31.0-37.0); MCV 102.9 fL (80.0-100.0); Macrocytosis Slight; Mean Platelet Volume 8.6; Platelet Count 209 k/uL (150-450); RBC 3.52 m/uL (3.80-5.40); RDW 13.9 % (11.5-15.5)
[2023-09-06 11:52] LABS: African American GFR (CKD) 76 (>60 ml/min/1.73 sqM); Anion Gap 10 mmol/L; Blood Urea Nitrogen 20 mg/dL (7-17); Carbon Dioxide 31 mmol/L (22-30); Chloride 93 mmol/L (98-107); Glucose 102 mg/dL (74-99); Non-African American GFR(CKD) 66 (>60 ml/min/1.73 sqM); Potassium 4.4 mmol/L (3.5-5.1); Sodium 134 mmol/L (137-145)
--- NOTE | 2023-09-06 11:56 | P.PN ---
Subjective Progress Note Date: 09/06/23 * 70-year-old patient with past medical history of paroxysmal atrial fibrillation, status post dual-chamber pacemaker placement, coronary artery disease, hypertension, hyperlipidemia who recently underwent cardiac catheterization as well with patent stent of RCA, mild disease in LAD presents to the emergency department with complains of shortness of breath. Patient has ejection fraction of 37% checked in July 2023. 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 For the last 1 week patient has been complaining of worsening shortness of breath, orthopnea, exertional dyspnea. Patient has been complaining of nonproductive cough and wheezing as well. Patient states ever since discharge from the hospital she noted to have worsening lower extremity swelling and had gained weight. Patient has been taking Lasix did not miss any doses however continue to have worsening shortness of breath. Patient states she has been having worsening symptoms for 1 week, however she did not come to the hospital, patient states she regrets she should have been in sooner * Workup in ER included CBC which were WBC 6.5 hemoglobin 11.9 platelet count of 197, INR of 1 serum chemistry showed sodium 131 chloride 97 BUN 14 creatinine 0.63, ALT of 746 AST 44 * Initial troponin obtained 0.012, N-terminal proBNP, 2130 ' * Chest x-ray obtained in ER showed pulmonary vascular congestion small pleural effusion * she was given 1 dose of IV Lasix and admitted to medical floor with consultation from cardiology * 09/05/23: Patient seen and evaluated and bedside, patient was in ER 2 during my evaluation. Continue patient on Lasix, patient does of Coreg was increased as well secondary to persistent tachycardia. Patient already on amiodarone, cardiology consulted pending evaluation * 09/06/23: Patient seen and evaluated bedside, was seen by cardiology patient states breathing has improved, continue patient on Lasix dose of Coreg 3 secondary to hypertension, dose of Lasix decreased secondary to hypotension, sodium 134, renal function within normal limits, appreciate input from cardiac REVIEW OF SYSTEMS: Shortness of breath, wheezing, orthopnea improved >> lower extremity swelling present CONSTITUTIONAL: No fever, no malaise, no fatigue. HEENT: No recent visual problems or hearing problems. Denied any sore throat. CARDIOVASCULAR: No chest pain, orthopnea, PND, no palpitations, no syncope. PULMONARY: Shortness of breath, wheezing, orthopnea or lower extremity swelling GASTROINTESTINAL: No diarrhea, no nausea, no vomiting, no abdominal pain. NEUROLOGICAL: No headaches, no weakness, no numbness. HEMATOLOGICAL: Denies any bleeding or petechiae. GENITOURINARY: Denies any burning micturition, frequency, or urgency. MUSCULOSKELETAL/RHEUMATOLOGICAL: Denies any joint pain, swelling, or any muscle pain. ENDOCRINE: Denies any polyuria or polydipsia. PHYSICAL EXAMINATION: GENERAL: The patient is alert and oriented x3, not in any acute distress. Well developed, well nourished. HEENT: Pupils are round and equally reacting to light. EOMI. CARDIOVASCULAR: S1 and S2 present. No murmurs, rubs, or gallops. Lower extremity edema noted PULMONARY: Decreased breath sounds bilaterally ABDOMEN: Soft, nontender, nondistended, normoactive bowel sounds. No palpable organomegaly. MUSCULOSKELETAL: No joint swelling or deformity. EXTREMITIES: No cyanosis, clubbing, or pedal edema. NEUROLOGICAL: Gross neurological examination did not reveal any focal deficits. SKIN: No rashes. Objective - Vital Signs Vital signs: Vital Signs Temp 98.0 F 09/06/23 11:16 Pulse 100 09/06/23 11:16 Resp 18 09/06/23 11:16 BP 108/76 09/06/23 11:16 Pulse Ox 98 09/06/23 11:16 FiO2 Intake & Output 09/05/23 09/06/23 09/06/23 18:59 06:59 18:59 Intake Total 128 20 368 Output Total 975 600 425 Balance -847 -580 -57 Weight 76.6 kg Intake: IV 10 20 10 Invasive Line 1 10 20 10 Oral 118 358 Output: Urine 975 600 425 Other: Voiding Method Toilet Toilet Toilet # Voids 1 1 # Bowel Movements 1 - Labs CBC & Chem 7: 09/06/23 10:41 09/06/23 10:41 Labs: Abnormal Lab Results - Last 24 Hours (Table) 09/06/23 09/06/23 Range/Units 10:41 10:41 RBC 3.52 L (3.80-5.40) m/uL MCV 102.9 H (80.0-100.0) fL Sodium 134 L (137-145) mmol/L Chloride 93 L (98-107) mmol/L Carbon Dioxide 31 H (22-30) mmol/L BUN 20 H (7-17) mg/dL Glucose 102 H (74-99) mg/dL Assessment and Plan Assessment: Assessment and plan * Acute on chronic congestive heart failure systolic dysfunction * Paroxysmal atrial fibrillation with rapid ventricular response * Coronary artery disease * Hyperlipidemia * History of sick sinus syndrome status post pacemaker in place * In regards to congestive heart failure, continue patient on IV Lasix , continue to monitor intake and output, monitor daily weights * In regards to atrial fibrillation continue patient on Coreg, dose increased to 25 mg twice a day withholding per meter>> however she was hypotensive hence Coreg decreased to 12.5 twice a day continue amiodarone * In regards to coronary artery disease continue patient on aspirin, Lipitor * In regards to sick sinus syndrome continue telemetry monitoring status post pacemaker * Cardiology consulted, appreciate recommendations * CODE STATUS is full code
[2023-09-06] MEDS: MELATONIN 3 MG TABLET PO SCH (21:05)
[2023-09-06] MEDS: FUROSEMIDE 10 MG/ML 2 ML VIAL IV SCH (21:05)
[2023-09-07] MEDS: carvediloL 12.5 MG TAB PO SCH ×2 (06:38→16:35)
[2023-09-07] MEDS: ENOXAPARIN 40 MG/0.4 ML SYRINGE SQ SCH (07:48)
[2023-09-07] MEDS: ATORVASTATIN 40 MG TAB PO SCH (07:48)
[2023-09-07] MEDS: POTASSIUM CHLORIDE ER 20 MEQ TAB.ER PO SCH (07:49)
[2023-09-07] MEDS: FUROSEMIDE 10 MG/ML 2 ML VIAL IV SCH (07:49)
[2023-09-07] MEDS: CHOLECALCIFEROL 25 MCG (1000 IU) TABLET PO SCH (07:49)
[2023-09-07] MEDS: AMIODARONE 200 MG TAB PO SCH ×2 (07:49→20:41)
[2023-09-07] MEDS: allopurinoL 100 MG TAB PO SCH ×2 (07:49→20:41)
[2023-09-07] MEDS: ASCORBIC ACID 500 MG TAB PO SCH (07:49)
[2023-09-07] MEDS: ASPIRIN 81 MG PO SCH (07:49)
[2023-09-07 09:52] LABS: HCT 36.6 % (34.0-46.0); HGB 11.8 gm/dL (11.4-16.0); MCH 33.4 pg (25.0-35.0); MCHC 32.2 g/dL (31.0-37.0); MCV 103.7 fL (80.0-100.0); Macrocytosis Slight; Mean Platelet Volume 9.3; Platelet Count 214 k/uL (150-450); RBC 3.53 m/uL (3.80-5.40); RDW 14.3 % (11.5-15.5); WBC 6.6 k/uL (3.8-10.6)
[2023-09-07 10:06] LABS: African American GFR (CKD) 75 (>60 ml/min/1.73 sqM); Anion Gap 12 mmol/L; Blood Urea Nitrogen 19 mg/dL (7-17); Calcium 9.9 mg/dL (8.4-10.2); Carbon Dioxide 30 mmol/L (22-30); Chloride 94 mmol/L (98-107); Glucose 143 mg/dL (74-99); Non-African American GFR(CKD) 65 (>60 ml/min/1.73 sqM); Potassium 3.7 mmol/L (3.5-5.1); Sodium 136 mmol/L (137-145)
--- NOTE | 2023-09-07 13:11 | XR ---
EXAMINATION TYPE: XR chest 1V portable DATE OF EXAM: 09/07/2023 12:45 PM CLINICAL INDICATION:Female, 78 years old with history of chf; COMPARISON: Chest radiographs from 09/04/2023 TECHNIQUE: XR chest 1V portable Frontal view of the chest. FINDINGS: Lungs/Pleura: No evidence of focal consolidation or pneumothorax. Blunting of the costophrenic angles is present. Pulmonary vascularity: Unremarkable. Heart/mediastinum: Cardiomediastinal silhouette is enlarged and stable. Two lead cardiac conduction d evice overlying the left hemithorax with lead tips projecting over the right ventricle and right atri um. Musculoskeletal: No acute osseous pathology. IMPRESSION: Cardiomegaly and mild pulmonary vascular congestion. Correlate with BNP for congestive heart failure.
--- NOTE | 2023-09-07 14:13 | PN ---
PROGRESS NOTE DATE OF SERVICE: 09/07/2023 SUBJECTIVE: This is a 78-year-old female, who was admitted with CHF acute exacerbation. She is being closely monitored. The IV Lasix had been switched to p.o. Lasix at this time. Chest x-ray showed significant improvement and also cardiomegaly. PHYSICAL EXAMINATION: VITAL SIGNS: Pulse is 100, blood pressure is 119/84, respirations 16. CHEST: Few scattered rhonchi and crackles. ABDOMEN: Soft. NERVOUS SYSTEM: Nonfocal. LABORATORY DATA: Reviewed. ASSESSMENT: 1. Congestive heart failure acute exacerbation, [id number] systolic dysfunction. 2. Paroxysmal atrial fibrillation. 3. Coronary artery disease. 4. Hyperlipidemia. 5. Multiple complex medical issues. RECOMMENDATIONS: Recommend to continue current medications. Continue with Lasix. Increase ambulation. Repeat labs in the morning. Possible discharge in the next 24 hours. Further recommendations to follow. MMODL / IJN: [id number] /
--- NOTE | 2023-09-07 14:49 | CT ---
EXAMINATION TYPE: CT brain wo con DATE OF EXAM: 09/07/2023 HISTORY: dizzy lightheadedness when standing CT DLP: 1067.4 mGycm. Automated Exposure Control for Dose Reduction was Utilized. TECHNIQUE: CT scan of the head is performed without contrast. COMPARISON: None. FINDINGS: There is no acute intracranial hemorrhage or midline shift identified. There is mild to m oderate diffuse ventricular and sulcal prominence consistent with diffuse age-related cerebral atroph y. Daley-white matter differentiation is preserved. Bilateral aphakia is seen. The visualized sinuses are clear. No suspicious opacification of the mastoid air cells. IMPRESSION: No acute intracranial hemorrhage or midline shift. There is [id number] diffuse ag e-related cerebral atrophy noted.
[2023-09-07] MEDS: FUROSEMIDE 20 MG TAB PO SCH (15:11)
[2023-09-07] MEDS: MECLIZINE 12.5 MG TAB PO SCH (20:41)
--- NOTE | 2023-09-07 22:11 | PN ---
PROGRESS NOTE SUBJECTIVE: Ally is a 78-year-old lady that is admitted to hospital with acute exacerbation of chronic congestive heart failure and persistent atrial fibrillation. She has history of GI bleed and had a Watchman device done and she also has known CAD status post prior angioplasty. She has been treated with IV Lasix with significant improvement in her symptoms. OBJECTIVE: GENERAL: This morning, she appears comfortable at rest. VITAL SIGNS: Heart rate is 100 beats per minute, blood pressure is 120/84, respiratory rate is 18. CHEST: Reveals good air entry bilaterally. HEART: Reveals first and second heart sounds. Irregular rhythm and a systolic murmur at the apex. ABDOMEN: Soft. EXTREMITIES: Exam of extremities did not reveal any edema. Peripheral pulses are felt. ASSESSMENT: Atrial fibrillation with rapid ventricular rate, history of gastrointestinal bleed, status post Watchman device, acute onset of congestive heart failure. PLAN: I will switch the patient to p.o. Lasix and hopefully home tomorrow. MMODL / IJN: [id number] /
[2023-09-07] MEDS: MELATONIN 3 MG TABLET PO SCH (23:39)
[2023-09-08] MEDS: carvediloL 12.5 MG TAB PO SCH (06:25)
[2023-09-08] MEDS: FUROSEMIDE 20 MG TAB PO SCH (09:01)
[2023-09-08] MEDS: ATORVASTATIN 40 MG TAB PO SCH (09:01)
[2023-09-08] MEDS: ASPIRIN 81 MG PO SCH (09:01)
[2023-09-08] MEDS: AMIODARONE 200 MG TAB PO SCH (09:01)
[2023-09-08] MEDS: CHOLECALCIFEROL 25 MCG (1000 IU) TABLET PO SCH (09:01)
[2023-09-08] MEDS: ENOXAPARIN 40 MG/0.4 ML SYRINGE SQ SCH (09:01)
[2023-09-08] MEDS: ASCORBIC ACID 500 MG TAB PO SCH (09:01)
[2023-09-08] MEDS: allopurinoL 100 MG TAB PO SCH (09:01)
[2023-09-08] MEDS: POTASSIUM CHLORIDE ER 20 MEQ TAB.ER PO SCH (09:02)
[2023-09-08] MEDS: MECLIZINE 12.5 MG TAB PO SCH (09:02)
[2023-09-08 09:32] VITALS: BP 114/73; PULSE 84; RESP 16; TEMP 97.5
[2023-09-08 09:59] LABS: ALT 32 U/L (4-34); AST 28 U/L (14-36); African American GFR (CKD) 87 (>60 ml/min/1.73 sqM); Albumin 4.3 g/dL (3.5-5.0); Alkaline Phosphatase 62 U/L (38-126); Anion Gap 10 mmol/L; Blood Urea Nitrogen 16 mg/dL (7-17); Calcium 9.9 mg/dL (8.4-10.2); Carbon Dioxide 28 mmol/L (22-30); Chloride 95 mmol/L (98-107); Glucose 73 mg/dL (74-99); Non-African American GFR(CKD) 75 (>60 ml/min/1.73 sqM); Potassium 4.1 mmol/L (3.5-5.1); Sodium 133 mmol/L (137-145); Total Bilirubin 0.7 mg/dL (0.2-1.3); Total Protein 6.9 g/dL (6.3-8.2)
[2023-09-08 10:01] LABS: Basophils # (A) 0.1 k/uL (0-0.2); Basophils % (A) 1 %; Eosinophils # (A) 0.2 k/uL (0-0.7); Eosinophils % (A) 4 %; HCT 38.3 % (34.0-46.0); HGB 12.4 gm/dL (11.4-16.0); Hypochromasia Slight; Lymphocytes # (A) 0.9 k/uL (1.0-4.8); Lymphocytes % (A) 15 %; MCH 34.1 pg (25.0-35.0); MCHC 32.4 g/dL (31.0-37.0); MCV 105.3 fL (80.0-100.0); Macrocytosis Moderate; Mean Platelet Volume 8.4; Monocytes # (A) 0.7 k/uL (0-1.0); Monocytes % (A) 11 %; Neutrophils # (A) 3.9 k/uL (1.3-7.7); Neutrophils % (A) 67 %; Platelet Count 214 k/uL (150-450); RBC 3.63 m/uL (3.80-5.40); RDW 13.8 % (11.5-15.5); WBC 5.8 k/uL (3.8-10.6)
--- NOTE | 2023-09-09 06:44 | P.DS ---
Providers Date of admission: 09/04/23 14:14 Expected date of discharge: 09/08/23 Attending physician: Vladimir Pace Consults: 09/04/23 14:14 Consult Physician Urgent Consulting Provider: Agus Dixon Consult Reason/Comments: acute chf exacerbation, permanent afib Do you want consulting provider notified?: Yes Primary care physician: Jone Avendano Hospital Course: Final diagnosis Acute on chronic congestive heart failure systolic dysfunction Paroxysmal atrial fibrillation with rapid ventricular response currently rate controlled Coronary artery disease history Hyperlipidemia History of sick sinus syndrome status post pacemaker in place GI prophylaxis DVT prophylaxis Full code Discharge disposition Patient is being discharged in a stable condition with guarded prognosis to home . Patient will follow-up with Dr. Avendano in the outpatient setting upon discharge. Patient is to continue with current medications and close outpatient follow-up with cardiology as scheduled. Total time taken is greater than 35 minutes. Hospital course This is a 78-year-old female who was recently admitted with increased shortness of breath and being closely monitored with cardiology following for congestive heart failure exacerbation. Patient also with atrial fibrillation with RVR and was placed on IV Lasix and adjustments to medications being done per cardiology. Patient reports to feeling better and would like to go home. Patient has been cleared by cardiology for discharge home with close outpatient follow-up with her outside b2b sales Dr. Hastings in one week. Patient reported having some dizziness when getting up and started on Antivert and will continue as needed and instructed the patient to sit at the side of the bed or chair prior to getting up and ambulating for 1-2 minutes. Currently no reports of chest pain, shortness of breath, or palpitations. Patient is afebrile. No reports of nausea or vomiting and patient is tolerating diet. Patient will be discharged home today. Guarded prognosis Physical exam: Gen: This is a 78-year-old female who is awake, alert and oriented 3, well- developed, well-nourished HEENT: Head is atraumatic, normocephalic. Pupils equal, round. Sclerae is anicteric. NECK: Supple. No JVD. No lymphadenopathy. No thyromegaly. LUNGS: Clear to auscultation. No wheezes or rhonchi. No intercostal retractions. HEART: S1, S2 are muffled ABDOMEN: Soft. Bowel sounds are present. No masses. No tenderness. EXTREMITIES: No pedal edema. No calf tenderness. NEUROLOGICAL: Patient is awake, alert and oriented x3. Cranial nerves 2 through 12 are grossly intact. Please refer to medication reconciliation sheet for a list of medications. The impression and plan of care has been dictated by Danisha Davalos Nurse Pr actitioner as directed. Dr. Sanjeev MD I have performed a history and examination and MDM of this patient, discussed the same with the dictator, and agree with the dictator's assessment and plan as written ,documented as a scribe. Based on total visit time, I have performed more than 50% of the visit. Patient Condition at Discharge: Stable Plan - Discharge Summary Discharge Rx Participant: No New Discharge Prescriptions: New Meclizine [Antivert] 12.5 mg PO BID #30 tab Amiodarone [Cordarone] 200 mg PO BID #60 tab Continue Ascorbic Acid [Vitamin C] 500 mg PO DAILY Krill/Om-3/Dha/Epa/Phospho/Ast [Krill Oil 500 mg Softgel] 1 cap PO DAILY Cholecalciferol [Vitamin D3 (25 Mcg = 1000 Iu)] 25 mcg PO DAILY Potassium Chloride ER [K-Dur 20] 20 meq PO DAILY Atorvastatin Calcium 40 mg PO DAILY Elderberry Gummies(Unk) 1 tab PO DAILY carvediloL [Coreg*] 12.5 mg PO BID #180 tablet allopurinoL 100 mg PO BID Furosemide [Lasix] 20 mg PO BID Aspirin 81 mg PO DAILY Acetaminophen [Tylenol Arthritis] 650 mg PO Q8H PRN PRN Reason: Pain Cranberry/Vitamin C/Vitamin D Gummies 1 tab PO DAILY Discontinued Amiodarone [Cordarone] 200 mg PO DAILY Discharge Medication List Acetaminophen [Tylenol Arthritis] 650 mg PO Q8H PRN 07/17/23 [History] Ascorbic Acid [Vitamin C] 500 mg PO DAILY 07/17/23 [History] Aspirin 81 mg PO DAILY 07/17/23 [History] Atorvastatin Calcium 40 mg PO DAILY 07/17/23 [History] Cholecalciferol [Vitamin D3 (25 Mcg = 1000 Iu)] 25 mcg PO DAILY 07/17/23 [History] Furosemide [Lasix] 20 mg PO BID 07/17/23 [History] Krill/Om-3/Dha/Epa/Phospho/Ast [Krill Oil 500 mg Softgel] 1 cap PO DAILY 07/17/23 [History] Potassium Chloride ER [K-Dur 20] 20 meq PO DAILY 07/17/23 [History] allopurinoL 100 mg PO BID 07/17/23 [History] Elderberry Gummies(Unk) 1 tab PO DAILY 08/13/23 [History] carvediloL [Coreg*] 12.5 mg PO BID #180 tablet 08/18/23 [Rx] Cranberry/Vitamin C/Vitamin D Gummies 1 tab PO DAILY 09/04/23 [History] Amiodarone [Cordarone] 200 mg PO BID #60 tab 09/08/23 [Rx] Meclizine [Antivert] 12.5 mg PO BID #30 tab 09/08/23 [Rx] Follow up Appointment(s)/Referral(s): Tj Hastings MD [STAFF PHYSICIAN] - 09/24/23 8:30 am (Previously scheduled appointment with [employer] EM[employer]EE ()) Jone Avendano MD [Primary Care Provider] - 09/11/23 8:00 am (Thursday) Patient Instructions/Handouts: Heart Failure (DC) Activity/Diet/Wound Care/Special Instructions: Activity Limited until follow-up Follow-up with primary care provider on discharge Continue taking medications as prescribed Follow-up with cardiology in 1-2 weeks Discharge Disposition: HOME SELF-CARE
[2023-09-09] MEDS ORDERED: AMIODARONE 200 MG TAB PO SCH (09:00)
== END 2023-09-08 13:51 | disposition home or self-care (01) | DRG 291 ==
LOC: EC 11:33 → 3SCARD 14:14
PROVIDERS: ADMIT Hospitalist; ATTEND Hospitalist
DX: I11.0 Hypertensive heart disease with heart failure (principal); I50.23 Acute on chronic systolic (congestive) heart failure; I48.19 Other persistent atrial fibrillation; I95.9 Hypotension, unspecified; I49.5 Sick sinus syndrome; E78.5 Hyperlipidemia, unspecified; I25.10 Atherosclerotic heart disease of native coronary artery without angina pectoris; I45.10 Unspecified right bundle-branch block; G47.30 Sleep apnea, unspecified; M10.9 Gout, unspecified; Z79.82 Long term (current) use of aspirin; Z79.899 Other long term (current) drug therapy; Z85.51 Personal history of malignant neoplasm of bladder; Z95.0 Presence of cardiac pacemaker; Z95.5 Presence of coronary angioplasty implant and graft; Z87.891 Personal history of nicotine dependence; Z82.49 Family history of ischemic heart disease and other diseases of the circulatory system; M19.90 Unspecified osteoarthritis, unspecified site; Z95.818 Presence of other cardiac implants and grafts
CPT/HCPCS: 36415; 70450; 71045; 71046; 80048; 80053; 83605; 83880; 84484; 85025; 85027; 85610; 85730; 93005; 96374; 96375; 96376; 99285

== ENCOUNTER 2023-09-16 07:35 | Day surgery (SDC) | payer MEDICARE, BC ==
[~2023-09-16 07:35] MED LIST changes: -ceFAZolin 1 GM in SODIUM CHLORIDE 0.9% IRRIG BTL 250 ML IRRIGATION PRN
[2023-09-16] MEDS ORDERED: LACTATED RINGERS 1,000 ML IV ONE (08:18)
[2023-09-16] MEDS ORDERED: BENZOCAINE SPRAY 1 CAN TOPICAL ONE ×2 (08:54→09:14)
[2023-09-16] MEDS ORDERED: PHENYLEPHRINE-0.9% NACL SYG 1,000 MCG/10 ML SYRINGE ONE (08:56)
[2023-09-16] MEDS ORDERED: PROPOFOL 10 MG/ML 20 ML VIAL IV ONE (08:56)
[2023-09-16] MEDS ORDERED: LIDOCAINE 1% INJ 10MG/ML (20 ML MDV) ONE (08:56)
--- NOTE | 2023-09-16 09:39 | P.PCN ---
Date of Procedure: 09/16/23 Description of Procedure: Indication: Atrial fibrillation Procedure Description: After explaining the procedure to the patient, it's risk and complications, blood pressure, heart rate and O2 saturation were monitored. The throat was sprayed with Cetacaine. Patient received sedation per anesthesia department. The probe was introduced into the esophagus without difficulty. Images were obtained. Following that, the probe was removed. There was no immediate complication. Findings: Left atrial size is normal, left atrial appendage is closed. Left ventricle size is normal with global hypokinesis, ejection fraction is estimated at 35- 40%. The mitral valve revealed mild mitral annulus calcification. The aortic valve revealed mild thickening of the leaflets. Mild atherosclerotic changes of the descending thoracic aorta was noted. Small pericardial effusion was noted. A wire was noted in the right ventricle. Contrast bubble study revealed minimal late shunting across the PFO. Doppler: Pulse wave and color Doppler were obtained, and revealed mild to moderate mitral was mild tricuspid regurgitation. There was evidence of [id number] shunting through a PFO. Conclusion: 1. Closed left atrial appendage with no evidence of flow 2. Moderate global hypokinesis of the left ventricle 3. Mild to moderate mitral was mild tricuspid regurgitation 4. Patent foramen ovale with [id number] shunting and minimal late shunting by contrast bubble study 5. A wire was noted in the right ventricle 6. Mild atherosclerotic changes of the descending thoracic aorta. Cardioversion: After explaining the procedure to the patient, performing a SARAHI and obtaining sedated state synchronized biphasic cardioversion using 150 J and subsequently 200 J was performed with church of sinus mechanism, there was no immediate complication.
[2023-09-16 09:54] VITALS: TEMP 97
[2023-09-16 11:05] VITALS: BP 106/69; PULSE 61; RESP 17
[2023-09-16] MEDS ORDERED: carvediloL 12.5 MG TAB PO SCH (21:00)
[2023-09-17] MEDS ORDERED: AMIODARONE 200 MG TAB PO SCH (09:00)
[2023-09-17] MEDS ORDERED: ATORVASTATIN 40 MG TAB PO SCH (09:00)
== END 2023-09-16 11:11 | disposition home or self-care (01) ==
LOC: OR 07:35
PROVIDERS: ATTEND Internal Medicine Interventional Cardiology
DX: I07.1 Rheumatic tricuspid insufficiency (principal); I48.11 Longstanding persistent atrial fibrillation; I49.5 Sick sinus syndrome; Q21.12 Patent foramen ovale; I25.10 Atherosclerotic heart disease of native coronary artery without angina pectoris; I10 Essential (primary) hypertension; E78.5 Hyperlipidemia, unspecified; Z88.5 Allergy status to narcotic agent; Z88.8 Allergy status to other drugs, medicaments and biological substances; Z87.891 Personal history of nicotine dependence; Z79.82 Long term (current) use of aspirin; Z79.899 Other long term (current) drug therapy; Z95.0 Presence of cardiac pacemaker
CPT/HCPCS: 93312; 93320; 93325; 92960; J2001; J2704; J2371

== ENCOUNTER 2023-09-19 14:02 | Observation (INO) | payer MEDICARE, BC ==
[2023-09-19 14:52] LABS: Basophils % (A) 1 %; Eosinophils # (A) 0.2 k/uL (0-0.7); Eosinophils % (A) 3 %; HCT 37.2 % (34.0-46.0); HGB 12.5 gm/dL (11.4-16.0); Lymphocytes # (A) 0.9 k/uL (1.0-4.8); Lymphocytes % (A) 15 %; MCH 33.9 pg (25.0-35.0); MCHC 33.7 g/dL (31.0-37.0); MCV 100.5 fL (80.0-100.0); Macrocytosis Slight; Mean Platelet Volume 8.9; Monocytes # (A) 0.5 k/uL (0-1.0); Monocytes % (A) 8 %; Neutrophils # (A) 4.3 k/uL (1.3-7.7); Neutrophils % (A) 74 %; Platelet Count 195 k/uL (150-450); RDW 13.7 % (11.5-15.5); WBC 5.8 k/uL (3.8-10.6)
--- NOTE | 2023-09-19 14:59 | XR ---
EXAMINATION TYPE: XR chest 2V DATE OF EXAM: 09/19/2023 COMPARISON: 09/04/2023 HISTORY: Difficulty breathing TECHNIQUE: Frontal and lateral views of the chest are obtained. FINDINGS: There is a 2-lead cardiac pacemaker and moderate cardiomegaly. There is mild pulmonary vascular conge stion and small bilateral pleural effusions. Findings most consistent with CHF. There is no pneumothorax. The osseous structures are intact IMPRESSION: Acute cardiopulmonary disease most consistent with moderate CHF.
[2023-09-19 15:06] LABS: Partial Thromboplastin Time 23.8 sec (22.0-30.0); Prothrombin Time 10.7 sec (10.0-12.5)
[2023-09-19 15:07] LABS: ALT 73 U/L (4-34); AST 46 U/L (14-36); African American GFR (CKD) >90 (>60 ml/min/1.73 sqM); Albumin 4.5 g/dL (3.5-5.0); Alkaline Phosphatase 88 U/L (38-126); Anion Gap 12 mmol/L; Blood Urea Nitrogen 18 mg/dL (7-17); Carbon Dioxide 27 mmol/L (22-30); Chloride 99 mmol/L (98-107); Glucose 98 mg/dL (74-99); Magnesium 2.1 mg/dL (1.6-2.3); Non-African American GFR(CKD) 84 (>60 ml/min/1.73 sqM); Potassium 4.3 mmol/L (3.5-5.1); Sodium 138 mmol/L (137-145); Total Bilirubin 1.3 mg/dL (0.2-1.3); Total Protein 7.2 g/dL (6.3-8.2)
[2023-09-19 15:15] LABS: NT-Pro-B-Type Natriuretic Pept 1800 pg/mL
[2023-09-19] MEDS ORDERED: FUROSEMIDE 10 MG/ML 4 ML VIAL IV STA (15:43)
--- NOTE | 2023-09-19 16:28 | ED ---
General Adult HPI - General Chief complaint: Shortness of Breath Stated complaint: fluid build up Time Seen by Provider: 09/19/23 15:03 Source: patient, family, RN notes reviewed, old records reviewed Mode of arrival: wheelchair Limitations: no limitations - History of Present Illness Initial comments: Patient is a 78-year-old female presents with the department for dyspnea. He has a history of cardiac disease including A. fib status post cardioversion earlier this week, pacemaker, congestive heart failure presents emergency Department complaining congestive heart failure-like symptoms. For the last 2-3 days she has noticed increasing lower extremity symmetrical swelling, exertional shortness of breath, nonproductive cough, worsening orthopnea. States she is on Lasix 20 mg twice a day but is uncertain if this is strong enough. States she w as recently admitted for congestive heart failure exacerbation with him last 6 weeks and states this is similar to that time however rather than wait and so ago where she wanted to be evaluated for possible admission. Presents for further evaluation at this time. Follows with Dr. Hastings. States she has been compliant with Lasix. Denies chest pain, abdominal pain, nausea, vomiting, diarrhea. No other acute complaint at this time. - Related Data Home Medications Medication Instructions Recorded Confirmed Acetaminophen [Tylenol Arthritis] 650 mg PO Q8H PRN 07/17/23 09/19/23 Ascorbic Acid [Vitamin C] 500 mg PO DAILY 07/17/23 09/19/23 Aspirin 81 mg PO DAILY 07/17/23 09/19/23 Atorvastatin Calcium 40 mg PO DAILY 07/17/23 09/19/23 Cholecalciferol [Vitamin D3 (25 25 mcg PO DAILY 07/17/23 09/19/23 Mcg = 1000 Iu)] Furosemide [Lasix] 20 mg PO BID 07/17/23 09/19/23 Krill/Om-3/Dha/Epa/Phospho/Ast 1 cap PO DAILY 07/17/23 09/19/23 [Krill Oil 500 mg Softgel] Potassium Chloride ER [K-Dur 20] 20 meq PO DAILY 07/17/23 09/19/23 allopurinoL 100 mg PO BID 07/17/23 09/19/23 Elderberry Gummies(Unk) 1 tab PO DAILY 08/13/23 09/19/23 Cranberry/Vitamin C/Vitamin D 1 tab PO DAILY 09/04/23 09/19/23 Gummies Amiodarone [Cordarone] 200 mg PO DAILY 09/11/23 09/19/23 Previous Rx's Medication Instructions Recorded carvediloL [Coreg*] 12.5 mg PO BID #180 tablet 08/18/23 Meclizine [Antivert] 12.5 mg PO BID #30 tab 09/08/23 Allergies Allergy/AdvReac Type Severity Reaction Status Date / Time No Known Allergies Allergy Verified 09/19/23 16:47 Review of Systems ROS Statement: Those systems with pertinent positive or pertinent negative responses have been documented in the HPI. Review of Systems: CONST: Denies fever EYES: Denies blurry vision ENT: Denies nasal congestion C/V: Denies Chest pain RESP: Endorses dyspnea GI: Denies abdominal pain : Denies dysuria SKIN: Denies rash. MSK: Denies joint pain. NEURO: Denies headache ROS Other: All systems not noted in ROS Statement are negative. Past Medical History Past Medical History: Atrial Fibrillation, Coronary Artery Disease (CAD), Cancer, Hyperlipidemia, Hypertension, Osteoarthritis (OA), Sleep Apnea/CPAP/BIPAP, Syncope, Vascular Disorder Additional Past Medical History / Comment(s): Gout, heart murmur, bladder cancer 21 years ago. cannot wear the cpap machine. cardioversion 09/15/23, watchmen loop recorder History of Any Multi-Drug Resistant Organisms: None Reported Past Surgical History: Cardiac Ablation, Heart Catheterization With Stent, Pacemaker Additional Past Surgical History / Comment(s): bladder tumor removed, carotids stents bilaterally. 2 iliac stents , colonoscopy. Watchman device-anticoag is ASA, PPM 08/18/2023 Past Anesthesia/Blood Transfusion Reactions: Postoperative Nausea & Vomiting (PONV) Additional Past Anesthesia/Blood Transfusion Reaction / Comment(s): does not tolerate narcotics, ponv if not pre medicated Date of Last Stent Placement:: unk Type of Cardiac Device: Permanent Pacemaker Device Placement Date:: 08/14/2023 Past Psychological History: No Psychological Hx Reported Past Alcohol Use History: None Reported - Past Family History Father Family Medical History: Myocardial Infarction ([place]) Mother Additional Family Medical History / Comment(s): alzheimer, General Exam - General Exam Comments Initial Comments: General: Appears in no acute distress. HEAD: Normal with no signs of head trauma. EYES: PERRLA, EOMI, conjunctiva normal, no discharge. ENT: Hearing grossly intact, normal oropharynx. RESPIRATORY: Clear breath sounds bilaterally. No wheezes, rales, or rhonchi. Increased dyspnea on exertion. no ambulatory hypoxia. C/V: Regular rate and rhythm. S1 and S2 auscultated, 1-2+ bilateral lower extremity symmetrical pitting edema to the level of the knee, peripheral pulses 2+ and intact throughout ABD: Abd is soft, nontender, nondistended EXT: Normal range of motion, no obvious deformity SKIN: No rashes or lesions observed on exposed skin. NEURO: Alert and oriented x 4. Limitations: no limitations Course Vital Signs 09/19/23 14:14 Temperature 97.5 F L Pulse Rate 60 Respiratory 16 Rate Blood Pressure 145/79 O2 Sat by Pulse 96 Oximetry Medical Decision Making - Medical Decision Making Was pt. sent in by a medical professional or institution (, LAUREN, STATISTICAL FINANCIAL ANALYST, urgent care, hospital, or correction...) When possible be specific @ -No Did you speak to anyone other than the patient for history (EMS, parent, family, police, friend...)? What history was obtained from this source @ -No Did you review nursing and triage notes (agree or disagree)? Why? @ -I reviewed and agree with nursing and triage notes Were old charts reviewed (outside hosp., previous admission, EMS record, old EKG, old radiological studies, urgent care reports/EKG's, correction records)? Report findings @ -Old charts reviewed Differential Diagnosis (chest pain, altered mental status, abdominal pain women, abdominal pain men, vaginal bleeding, weakness, fever, dyspnea, syncope, headache, dizziness, GI bleed, back pain, seizure, CVA, palpatations, mental health, musculoskeletal)? @ -Differential Dyspnea: Coronary syndrome, arrhythmia, tamponade, asthma, COPD, pulmonary embolism, pneumonia, pneumothorax, pulmonary effusion, anaphylaxis, diabetic ketoacidosis, flailed chest, pulmonary contusion, diaphragmatic rupture, anemia, neuromuscular, this is not meant to be an all-inclusive list. EKG interpreted by me (3pts min.). @ -As above X-rays interpreted by me (1pt min.). @ -Chest x-ray reveals moderate pulmonary vascular congestion. CT interpreted by me (1pt min.). @ -None done U/S interpreted by me (1pt. min.). @ -None done What testing was considered but not performed or refused? (CT, X-rays, U/S, labs)? Why? @ -None What meds were considered but not given or refused? Why? @ -None Did you discuss the management of the patient with other professionals (professionals i.e. , PA, STATISTICAL FINANCIAL ANALYST, lab, RT, psych nurse, drug abuse social worker, behavioral interventionist, teacher, worldwide chief creative officer, case fitter)? Give summary @ -Spoke with the admitting physician, Dr. Blake of [facility] who accepted the admission. Was smoking cessation discussed for >3mins.? @ -No Was critical care preformed (if so, how long)? @ -No Were there social determinants of health that impacted care today? How? (Homelessness, low income, unemployed, alcoholism, drug addiction, transportation, low edu. Level, literacy, decrease access to med. care, custodial, rehab)? @ -No Was there de-escalation of care discussed even if they declined (Discuss DNR or withdrawal of care, Hospice)? DNR status @ -No What co-morbidities impacted this encounter? (DM, HTN, Smoking, COPD, CAD, Cancer, CVA, ARF, Chemo, Hep., AIDS, mental health diagnosis, sleep apnea, morbid obesity)? @ -None Was patient admitted / discharged? Hospital course, mention meds given and route, prescriptions, significant lab abnormalities, going to OR and other pertinent info. @ -Based on the patient's presentation physical exam, presents with a suspected CHF exacerbation. Workup was started in triage. I evaluated her when she is placed in a room. Vital signs within acceptable limits including normal and auditory pulse ox and it however patient does have subjective exertional dyspnea and appears out of breath on exertion. Does have other evidence of CHF exacerbations including worsening lower extremity edema, orthopnea, nonproductive cough. Patient's laboratory studies remarkable for a elevated BNP of 1800, undetectable troponin. Chest x-ray shows bilateral pulmonary vascular congestion. EKG shows no signs of acute ischemia. I did the patient at this time. Due to the findings, I did recommend admission as she is symptomatic with a mild CHF exacerbation. This being observation admission as she is not hypoxic. She was in agreement this plan. She'll be started on IV Lasix 40 mg twice a day. Cardiology will be consulted. I spoke with the accepting physician Dr. Blake of [facility] who accepted the patient. Undiagnosed new problem with uncertain prognosis? @ -No Drug Therapy requiring intensive monitoring for toxicity (Heparin, Nitro, Insulin, Cardizem)? @ -No Were any procedures done? @ -No Diagnosis/symptom? @ -CHF exacerbation Acute, or Chronic, or Acute on Chronic? @ -Acute Uncomplicated (without systemic symptoms) or Complicated (systemic symptoms)? @ -Complicated Side effects of treatment? @ -No Exacerbation, Progression, or Severe Exacerbation? @ -No Poses a threat to life or bodily function? How? (Chest pain, [place], [place], pneumonia, PE, COPD, DKA, ARF, appy, cholecystitis, CVA, Diverticulitis, Homicidal, Suicidal, threat to staff... and all critical care pts) @ -Possibly, yes - Lab Data Result diagrams: 09/19/23 14:26 09/19/23 14:26 Lab Results 09/19/23 09/19/23 09/19/23 Range/Units 14:26 14:26 14:26 WBC 5.8 (3.8-10.6) k/uL RBC 3.70 L (3.80-5.40) m/uL Hgb 12.5 (11.4-16.0) gm/dL Hct 37.2 (34.0-46.0) % MCV 100.5 H (80.0-100.0) fL MCH 33.9 (25.0-35.0) pg MCHC 33.7 (31.0-37.0) g/dL RDW 13.7 (11.5-15.5) % Plt Count 195 (150-450) k/uL MPV 8.9 Neutrophils % 74 % Lymphocytes % 15 % Monocytes % 8 % Eosinophils % 3 % Basophils % 1 % Neutrophils # 4.3 (1.3-7.7) k/uL Lymphocytes # 0.9 L (1.0-4.8) k/uL Monocytes # 0.5 (0-1.0) k/uL Eosinophils # 0.2 (0-0.7) k/uL Basophils # 0.0 (0-0.2) k/uL Macrocytosis Slight PT 10.7 (10.0-12.5) sec INR 1.0 (<1.2) APTT 23.8 (22.0-30.0) sec Sodium 138 (137-145) mmol/L Potassium 4.3 (3.5-5.1) mmol/L Chloride 99 (98-107) mmol/L Carbon Dioxide 27 (22-30) mmol/L Anion Gap 12 mmol/L BUN 18 H (7-17) mg/dL Creatinine 0.68 (0.52-1.04) mg/dL Est GFR (CKD-EPI)AfAm >90 (>60 ml/min/1.73 sqM) Est GFR (CKD-EPI)NonAf 84 (>60 ml/min/1.73 sqM) Glucose 98 (74-99) mg/dL Calcium 10.0 (8.4-10.2) mg/dL Magnesium 2.1 (1.6-2.3) mg/dL Total Bilirubin 1.3 (0.2-1.3) mg/dL AST 46 H (14-36) U/L ALT 73 H (4-34) U/L Alkaline Phosphatase 88 (38-126) U/L Troponin I (0.000-0.034) ng/mL NT-Pro-B Natriuret Pep 1800 pg/mL Total Protein 7.2 (6.3-8.2) g/dL Albumin 4.5 (3.5-5.0) g/dL 09/19/23 Range/Units 14:26 WBC (3.8-10.6) k/uL RBC (3.80-5.40) m/uL Hgb (11.4-16.0) gm/dL Hct (34.0-46.0) % MCV (80.0-100.0) fL MCH (25.0-35.0) pg MCHC (31.0-37.0) g/dL RDW (11.5-15.5) % Plt Count (150-450) k/uL MPV Neutrophils % % Lymphocytes % % Monocytes % % Eosinophils % % Basophils % % Neutrophils # (1.3-7.7) k/uL Lymphocytes # (1.0-4.8) k/uL Monocytes # (0-1.0) k/uL Eosinophils # (0-0.7) k/uL Basophils # (0-0.2) k/uL Macrocytosis PT (10.0-12.5) sec INR (<1.2) APTT (22.0-30.0) sec Sodium (137-145) mmol/L Potassium (3.5-5.1) mmol/L Chloride (98-107) mmol/L Carbon Dioxide (22-30) mmol/L Anion Gap mmol/L BUN (7-17) mg/dL Creatinine (0.52-1.04) mg/dL Est GFR (CKD-EPI)AfAm (>60 ml/min/1.73 sqM) Est GFR (CKD-EPI)NonAf (>60 ml/min/1.73 sqM) Glucose (74-99) mg/dL Calcium (8.4-10.2) mg/dL Magnesium (1.6-2.3) mg/dL Total Bilirubin (0.2-1.3) mg/dL AST (14-36) U/L ALT (4-34) U/L Alkaline Phosphatase (38-126) U/L Troponin I <0.012 (0.000-0.034) ng/mL NT-Pro-B Natriuret Pep pg/mL Total Protein (6.3-8.2) g/dL Albumin (3.5-5.0) g/dL - EKG Data -: EKG Interpreted by Me EKG Comments: 12-lead Electrocardiogram Interpretation Note EKG was reviewed and interpreted by myself. 12-lead ECG performed at 1425 is interpreted by me as revealing a paced rhythm at a rate of 60 beats per minute. [place] is normal. ND interval is 324 ms, QRS duration is 125 ms, QTc is 474 ms.. There were no ST or T wave abnormalities to suggest myocardial ischemia or injury. R wave progression across the precordium was satisfactory. By my interpretation this EKG is non-diagnostic for acute ischemia. Disposition Clinical Impression: CHF exacerbation Disposition: ADMITTED IP TO THIS HOSP Condition: Stable Time of Disposition: 16:18
[2023-09-19] MEDS ORDERED: NALOXONE 0.4 MG/ML 1 ML VIAL IV PRN (16:50)
--- NOTE | 2023-09-19 22:18 | P.HPIM ---
History of Present Illness H&P Date: 09/19/23 Chief Complaint: Shortness of breath 78-year-old female presents with the department for dyspnea. He has a history of cardiac disease including A. fib status post cardioversion earlier this week, pacemaker, congestive heart failure presents emergency Department complaining congestive heart failure-like symptoms. For the last 2-3 days she has noticed increasing lower extremity symmetrical swelling, exertional shortness of breath, nonproductive cough, worsening orthopnea. States she is on Lasix 20 mg twice a day but is uncertain if this is strong enough. States she was recently admitted for congestive heart failure exacerbation with him last 6 weeks and states this is similar to that time however rather than wait and so ago where she wanted to be evaluated for possible admission. Presents for further evaluation at this time. Follows with Dr. Hastings. States she has been compliant with Lasix. Denies chest pain, abdominal pain, nausea, vomiting, diarrhea. No other acute complaint at this time. Blood work completed ED reveals a WBC 5.8, hemoglobin 12.5 and platelet count of 195, sodium 138, potassium 0.3, BUN/creatinine of 18/0.68, AST/ALT elevated at 4 with BNP of 1800 Chest x-ray reveals acute pulmonary pulmonary disease most consistent is consi stent with moderate CHF Review of Systems REVIEW OF SYSTEMS: CONSTITUTIONAL: No fever, no malaise, no fatigue. HEENT: No recent visual problems or hearing problems. Denied any sore throat. CARDIOVASCULAR: No chest pain, orthopnea, PND, no palpitations, no syncope. PULMONARY: No shortness of breath, no cough, no hemoptysis. GASTROINTESTINAL: No diarrhea, no nausea, no vomiting, no abdominal pain. NEUROLOGICAL: No headaches, no weakness, no numbness. HEMATOLOGICAL: Denies any bleeding or petechiae. GENITOURINARY: Denies any burning micturition, frequency, or urgency. MUSCULOSKELETAL/RHEUMATOLOGICAL: Denies any joint pain, swelling, or any muscle pain. ENDOCRINE: Denies any polyuria or polydipsia. The rest of the 14-point review of systems is negative. Past Medical History Past Medical History: Atrial Fibrillation, Coronary Artery Disease (CAD), Cancer, Hyperlipidemia, Hypertension, Osteoarthritis (OA), Sleep Apnea/CPAP/BIPAP, Syncope, Vascular Disorder Additional Past Medical History / Comment(s): Gout, heart murmur, bladder cancer 21 years ago. cannot wear the cpap machine. cardioversion 09/15/23, watchmen loop recorder History of Any Multi-Drug Resistant Organisms: None Reported Past Surgical History: Cardiac Ablation, Heart Catheterization With Stent, Pacemaker Additional Past Surgical History / Comment(s): bladder tumor removed, carotids stents bilaterally. 2 iliac stents , colonoscopy. Watchman device-anticoag is ASA, PPM 08/18/2023 Past Anesthesia/Blood Transfusion Reactions: Postoperative Nausea & Vomiting (PONV) Additional Past Anesthesia/Blood Transfusion Reaction / Comment(s): does not tolerate narcotics, ponv if not pre medicated Date of Last Stent Placement:: unk Type of Cardiac Device: Permanent Pacemaker Device Placement Date:: 08/14/2023 Past Psychological History: No Psychological Hx Reported Past Alcohol Use History: None Reported - Past Family History Father Family Medical History: Myocardial Infarction ([place]) Mother Additional Family Medical History / Comment(s): alzheimer, Medications and Allergies Home Medications Medication Instructions Recorded Confirmed Type Acetaminophen [Tylenol Arthritis] 650 mg PO Q8H PRN 07/17/23 09/19/23 History Ascorbic Acid [Vitamin C] 500 mg PO DAILY 07/17/23 09/19/23 History Aspirin 81 mg PO DAILY 07/17/23 09/19/23 History Atorvastatin Calcium 40 mg PO DAILY 07/17/23 09/19/23 History Cholecalciferol [Vitamin D3 (25 25 mcg PO DAILY 07/17/23 09/19/23 History Mcg = 1000 Iu)] Furosemide [Lasix] 20 mg PO BID 07/17/23 09/19/23 History Krill/Om-3/Dha/Epa/Phospho/Ast 1 cap PO DAILY 07/17/23 09/19/23 History [Krill Oil 500 mg Softgel] Potassium Chloride ER [K-Dur 20] 20 meq PO DAILY 07/17/23 09/19/23 History allopurinoL 100 mg PO BID 07/17/23 09/19/23 History Elderberry Gummies(Unk) 1 tab PO DAILY 08/13/23 09/19/23 History carvediloL [Coreg*] 12.5 mg PO BID #180 tablet 08/18/23 09/19/23 Rx Cranberry/Vitamin C/Vitamin D 1 tab PO DAILY 09/04/23 09/19/23 History Gummies Meclizine [Antivert] 12.5 mg PO BID #30 tab 09/08/23 09/19/23 Rx Amiodarone [Cordarone] 200 mg PO DAILY 09/11/23 09/19/23 History Allergies Allergy/AdvReac Type Severity Reaction Status Date / Time No Known Allergies Allergy Verified 09/19/23 16:47 Physical Exam Vitals: Vital Signs Temp Pulse Resp BP Pulse Ox 09/19/23 17:27 60 18 138/80 96 09/19/23 14:14 97.5 F L 60 16 145/79 96 Intake and Output 09/19/23 09/19/23 09/19/23 06:59 14:59 22:59 Other: Weight 77.564 kg General: Appears in no acute distress. HEAD: Normal with no signs of head trauma. EYES: PERRLA, EOMI, conjunctiva normal, no discharge. ENT: Hearing grossly intact, normal oropharynx. RESPIRATORY: Clear breath sounds bilaterally. No wheezes, rales, or rhonchi. Increased dyspnea on exertion. no ambulatory hypoxia. C/V: Regular rate and rhythm. S1 and S2 auscultated, 1-2+ bilateral lower extremity symmetrical pitting edema to the level of the knee, peripheral pulses 2+ and intact throughout ABD: Abd is soft, nontender, nondistended EXT: Normal range of motion, no obvious deformity SKIN: No rashes or lesions observed on exposed skin. NEURO: Alert and oriented x 4. Results CBC & Chem 7: 09/19/23 14:26 09/19/23 14:26 Labs: Abnormal Lab Results - Last 24 Hours (Table) 09/19/23 09/19/23 Range/Units 14:26 14:26 RBC 3.70 L (3.80-5.40) m/uL MCV 100.5 H (80.0-100.0) fL Lymphocytes # 0.9 L (1.0-4.8) k/uL BUN 18 H (7-17) mg/dL AST 46 H (14-36) U/L ALT 73 H (4-34) U/L Assessment and Plan Assessment: 1. Acute exacerbation CHF - Patient will be admitted to telemetry; monitor EKG and trend troponin; patient is placed on Lasix 40 mg IV every 12 hours - We will monitor strict RESHMA's, daily weights, low salt and fluid restricted diet - Recommend 2-D echo; cardiology is consulted 2. Transaminitis; AST/ALT are elevated; likely related to statin; we will monitor liver enzymes and plan for further evaluation if liver enzymes continue to trend up 3. Mild AK I; BUN is mildly elevated; we will hold off on IV fluid hydration given exacerbation of CHF; we will monitor strict RESHMA's, daily weights, renal function Avoid nephrotoxins and hypotension 4. Hypertension; Coreg 12.5 mg twice a day 5. Hyperlipidemia; Lipitor 40 mg daily 6. Coronary artery disease; stable on beta blockers, statins and aspirin 7. Atrial fibrillation; continue with amiodarone 200 mg daily; Coreg 12.5 mg twice a day 8. Hyperglycemia/gout; allopurinol 100 mg twice a day DVT prophylaxis; SCDs CODE STATUS; full code
[2023-09-19] MEDS: allopurinoL 100 MG TAB PO SCH (23:28)
[2023-09-19] MEDS: carvediloL 12.5 MG TAB PO SCH (23:28)
[2023-09-19] MEDS: FUROSEMIDE 10 MG/ML 4 ML VIAL IV SCH (23:28)
[2023-09-20 06:38] VITALS: RESP 16
[2023-09-20 09:31] LABS: ALT 55 U/L (8-44); AST 31 U/L (13-35); Albumin 4.3 g/dL (3.8-4.9); Albumin/Globulin Ratio 1.87 Ratio (1.60-3.17); Alkaline Phosphatase 87 U/L (41-126); BUN/Creat Ratio 18.56 Ratio (12.00-20.00); Blood Urea Nitrogen 16.7 mg/dL (9.0-27.0); Calcium 10.2 mg/dL (8.7-10.3); Carbon Dioxide 28.3 mmol/L (21.6-31.8); Chloride 100 mmol/L (96-109); Globulin 2.3 g/dL (1.6-3.3); Glucose 103 mg/dL (70-110); Potassium 4.1 mmol/L (3.5-5.5); Sodium 141 mmol/L (135-145); Total Bilirubin 0.9 mg/dL (0.3-1.2); Total Protein 6.6 g/dL (6.2-8.2)
[2023-09-20 09:41] LABS: Basophils # (A) 0.05 X 10*3/uL (0.00-0.10); Basophils % (A) 0.6 %; Eosinophils # (A) 0.18 X 10*3/uL (0.04-0.35); Eosinophils % (A) 2.2 %; HCT 35.8 % (37.2-46.3); HGB 11.7 g/dL (12.0-15.0); Lymphocytes # (A) 0.82 X 10*3/uL (0.90-5.00); Lymphocytes % (A) 10.1 %; MCH 32.7 pg (27.0-32.0); MCHC 32.7 g/dL (32.0-37.0); Mean Platelet Volume 11.4 FL (9.5-12.2); Monocytes % (A) 12.4 %; NRBC Per 100 WBC 0 X 10*3/uL (0.00-0.01); Neutrophils % (A) 74.3 %; Platelet Count 192 X 10*3/uL (140-440); RBC 3.58 X 10*6/uL (4.10-5.20); RDW 13.7 % (11.5-14.5); WBC 8.08 X 10*3/uL (4.50-10.00)
[2023-09-20] MEDS: ASPIRIN 81 MG PO SCH (10:07)
[2023-09-20] MEDS: CHOLECALCIFEROL 25 MCG (1000 IU) TABLET PO SCH (10:08)
[2023-09-20] MEDS: allopurinoL 100 MG TAB PO SCH ×2 (10:08→21:31)
[2023-09-20] MEDS: POTASSIUM CHLORIDE ER 20 MEQ TAB.ER PO SCH (10:08)
[2023-09-20] MEDS: FUROSEMIDE 10 MG/ML 4 ML VIAL IV SCH (10:08)
[2023-09-20] MEDS: ATORVASTATIN 40 MG TAB PO SCH (10:08)
[2023-09-20] MEDS: carvediloL 12.5 MG TAB PO SCH ×2 (10:08→21:27)
[2023-09-20] MEDS ORDERED: ACETAMINOPHEN TAB 325 MG TAB PO PRN (11:56)
[2023-09-20] MEDS: AMIODARONE 200 MG TAB PO SCH (12:32)
--- NOTE | 2023-09-20 14:35 | P.CRDCN ---
History of Present Illness Consult date: 09/20/23 Requesting physician: hCarly Blake Reason for Consult (text): chf exacerbation Chief complaint: shortness of breath History of present illness: This is a pleasant 78-year-old female patient who follows with Dr. Hastings in the office. Is a history of persistent atrial fibrillation, GI bleed, status post watchman, CAD with stenting of RCA with patent stent noted on recent cardiac catheterization. She recently presented to the office and was in persistent atrial fibrillation and subsequently underwent SARAHI guided cardioversion on the of this month. SRAAHI revealed moderate global hypokinesis of the left ventricle with ejection fraction of 35-40%, mild to moderate MR and mild TR. She was successfully cardioverted and is maintaining sinus mechanism. The day after the procedure she started to feel more short of breath with some abdominal distention and decided yesterday to come to the emergency department. EKG showed sinus mechanism with atrial paced rhythm. NT proBNP was 1800 which is improved compared to previous. Chest x-ray did show evidence of moderate CHF. She's been on Lasix 20 mg by mouth twice a day at home. She is currently on IV Lasix 40 mg every 12 hours. She is diuresed well with significant amount of urine output according to the patient. She is overall feeling significantly better. Past Medical History Past Medical History: Atrial Fibrillation, Coronary Artery Disease (CAD), Cancer, Hyperlipidemia, Hypertension, Osteoarthritis (OA), Sleep Apnea/CPAP/BIPAP, Syncope, Vascular Disorder Additional Past Medical History / Comment(s): Gout, heart murmur, bladder cancer 21 years ago. cannot wear the cpap machine. cardioversion 09/15/23, watchmen loop recorder History of Any Multi-Drug Resistant Organisms: None Reported Past Surgical History: Cardiac Ablation, Heart Catheterization With Stent, Pacemaker Additional Past Surgical History / Comment(s): bladder tumor removed, carotids stents bilaterally. 2 iliac stents , colonoscopy. Watchman device-anticoag is ASA, PPM 08/18/2023 Past Anesthesia/Blood Transfusion Reactions: Postoperative Nausea & Vomiting (PONV) Additional Past Anesthesia/Blood Transfusion Reaction / Comment(s): does not tolerate narcotics, ponv if not pre medicated Date of Last Stent Placement:: unk Type of Cardiac Device: Permanent Pacemaker Device Placement Date:: 08/14/2023 Past Psychological History: No Psychological Hx Reported Past Alcohol Use History: None Reported - Past Family History Father Family Medical History: Myocardial Infarction ([place]) Mother Additional Family Medical History / Comment(s): alzheimer, Medications and Allergies Home Medications Medication Instructions Recorded Confirmed Type Acetaminophen [Tylenol Arthritis] 650 mg PO Q8H PRN 07/17/23 09/19/23 History Ascorbic Acid [Vitamin C] 500 mg PO DAILY 07/17/23 09/19/23 History Aspirin 81 mg PO DAILY 07/17/23 09/19/23 History Atorvastatin Calcium 40 mg PO DAILY 07/17/23 09/19/23 History Cholecalciferol [Vitamin D3 (25 25 mcg PO DAILY 07/17/23 09/19/23 History Mcg = 1000 Iu)] Furosemide [Lasix] 20 mg PO BID 07/17/23 09/19/23 History Krill/Om-3/Dha/Epa/Phospho/Ast 1 cap PO DAILY 07/17/23 09/19/23 History [Krill Oil 500 mg Softgel] Potassium Chloride ER [K-Dur 20] 20 meq PO DAILY 07/17/23 09/19/23 History allopurinoL 100 mg PO BID 07/17/23 09/19/23 History Elderberry Gummies(Unk) 1 tab PO DAILY 08/13/23 09/19/23 History carvediloL [Coreg*] 12.5 mg PO BID #180 tablet 08/18/23 09/19/23 Rx Cranberry/Vitamin C/Vitamin D 1 tab PO DAILY 09/04/23 09/19/23 History Gummies Meclizine [Antivert] 12.5 mg PO BID #30 tab 09/08/23 09/19/23 Rx Amiodarone [Cordarone] 200 mg PO DAILY 09/11/23 09/19/23 History Allergies Allergy/AdvReac Type Severity Reaction Status Date / Time No Known Allergies Allergy Verified 09/19/23 16:47 Physical Exam Vitals: Vital Signs Temp Pulse Pulse Resp BP BP Pulse Ox 09/20/23 09:06 97.8 F 60 16 119/56 97 09/20/23 06:00 60 16 131/64 95 09/20/23 04:00 60 18 129/63 95 09/20/23 01:32 60 15 127/79 94 L 09/19/23 22:00 60 20 125/78 96 09/19/23 21:00 59 L 18 122/75 09/19/23 20:00 60 26 H 129/114 96 09/19/23 19:00 60 15 130/65 09/19/23 18:53 60 17 130/65 09/19/23 18:30 60 15 140/70 96 09/19/23 18:00 60 20 120/66 95 09/19/23 17:30 60 27 H 138/80 96 09/19/23 17:27 60 18 138/80 96 09/19/23 17:00 60 20 138/80 96 09/19/23 15:40 22 Intake and Output 09/19/23 09/20/23 09/20/23 22:59 06:59 14:59 Intake Total 118 Balance 118 Intake: Oral 118 PHYSICAL EXAMINATION: This is a 78-year-old female in no apparent distress at the time of my examination. VITAL SIGNS: Reviewed. HEENT: Head is atraumatic, normocephalic. Pupils are equal, round. Sclerae anicteric. Conjunctivae are clear. Mucous membranes of the mouth are moist. Neck is supple. There is no elevated jugular venous pressure. No carotid bruit is heard. CHEST EXAMINATION: Clear to auscultation bilaterally. No wheezes rales or rhonchi. Respirations even and nonlabored. HEART EXAMINATION: Heart regular, positive S1 and S2. No S3. No S4. Systolic murmur. ABDOMEN: Soft, nontender. Bowel sounds are heard. No organomegaly noted. EXTREMITIES: 2+ peripheral pulses with no evidence of peripheral edema and no calf tenderness noted. NEUROLOGIC EXAMINATION: Patient is awake, alert and oriented x3. Results 09/20/23 06:46 09/20/23 06:46 Cardiac Enzymes 09/19/23 09/19/23 09/20/23 Range/Units 14:26 14:26 06:46 AST 46 H 31 (14-36) U/L Troponin I <0.012 (0.000-0.034) ng/mL Coagulation 09/19/23 Range/Units 14:26 PT 10.7 (10.0-12.5) sec APTT 23.8 (22.0-30.0) sec CBC 09/19/23 09/20/23 Range/Units 14:26 06:46 WBC 5.8 8.08 (3.8-10.6) k/uL RBC 3.70 L 3.58 L (3.80-5.40) m/uL Hgb 12.5 11.7 L (11.4-16.0) gm/dL Hct 37.2 35.8 L (34.0-46.0) % Plt Count 195 192 (150-450) k/uL Comprehensive Metabolic Panel 09/19/23 09/20/23 Range/Units 14:26 06:46 Sodium 138 141 (137-145) mmol/L Potassium 4.3 4.1 (3.5-5.1) mmol/L Chloride 99 100 (98-107) mmol/L Carbon Dioxide 27 28.3 (22-30) mmol/L BUN 18 H 16.7 (7-17) mg/dL Creatinine 0.68 0.9 (0.52-1.04) mg/dL Glucose 98 103 (74-99) mg/dL Calcium 10.0 10.2 (8.4-10.2) mg/dL Unconjugated Bilirubin 0.60 (0.20-1.00) mg/dL AST 46 H 31 (14-36) U/L ALT 73 H 55 H (4-34) U/L Alkaline Phosphatase 88 87 (38-126) U/L Total Protein 7.2 6.6 (6.3-8.2) g/dL Albumin 4.5 4.3 (3.5-5.0) g/dL Current Medications Generic Name Dose Route Start Last Admin Trade Name Freq PRN Reason Stop Dose Admin Acetaminophen 650 mg 09/20/23 11:56 09/20/23 12:32 Acetaminophen Tab 325 Mg Tab PO 650 mg Q4HR PRN Administration Fever and/ or Pain Allopurinol 100 mg 09/19/23 21:00 09/20/23 10:08 Allopurinol 100 Mg Tab PO 100 mg BID PHAN Administration Amiodarone HCl 200 mg 09/20/23 09:00 09/20/23 12:32 Amiodarone 200 Mg Tab PO 200 mg DAILY PHAN Administration Aspirin 81 mg 09/20/23 09:00 09/20/23 10:07 Aspirin 81 Mg PO 81 mg DAILY PHAN Administration Atorvastatin Calcium 40 mg 09/20/23 09:00 09/20/23 10:08 Atorvastatin 40 Mg Tab PO 40 mg DAILY PHAN Administration Carvedilol 12.5 mg 09/19/23 21:00 09/20/23 10:08 Carvedilol 12.5 Mg Tab PO 12.5 mg BID PHAN Administration Cholecalciferol 25 mcg 09/20/23 09:00 09/20/23 10:08 Cholecalciferol 25 Mcg (1000 Iu) Tablet PO 25 mcg DAILY PHAN Administration Furosemide 40 mg 09/20/23 16:00 Furosemide 40 Mg Tab PO BID@0900,1600 PHAN Naloxone HCl 0.2 mg 09/19/23 16:50 Naloxone 0.4 Mg/Ml 1 Ml Vial IV Q2M PRN Opioid Reversal Potassium Chloride 20 meq 09/20/23 09:00 09/20/23 10:08 Potassium Chloride Er 20 Meq Tab.Er PO 20 meq DAILY PHAN Administration Intake and Output 09/19/23 09/20/23 09/20/23 22:59 06:59 14:59 Intake Total 118 Balance 118 Intake: Oral 118 09/20/23 06:46 09/20/23 06:46 EKG Interpretations (text) Atrial paced rhythm Assessment and Plan Assessment: #1 persistent atrial fibrillation, status post cardioversion, maintaining sinus mechanism #2 HFrEF, improved 3 CAD s/p RCA stent 4 hypertension 5 hyperlipidemia 6 tachy-tessa syndrome s/p ppm Plan: From cardiology's perspective we will switch the patient to oral Lasix 40 mg by mouth twice a day. She is stable for discharge home. She'll follow-up in the office as previously scheduled. HEEL ATT[employer]ER WOOD note has been reviewed, I agree with a documented findings and plan of care. Patient was seen and examined.
[2023-09-20] MEDS: FUROSEMIDE 40 MG TAB PO SCH ×2 (17:21→18:25)
[2023-09-20] MEDS ORDERED: MELATONIN 5 MG TABLET PO STA (22:29)
--- NOTE | 2023-09-21 06:19 | P.PN ---
Subjective Progress Note Date: 09/20/23 78-year-old female presents with the department for dyspnea. He has a history of cardiac disease including A. fib status post cardioversion earlier this week, pacemaker, congestive heart failure presents emergency Department complaining congestive heart failure-like symptoms. For the last 2-3 days she has noticed increasing lower extremity symmetrical swelling, exertional shortness of breath, nonproductive cough, worsening orthopnea. States she is on Lasix 20 mg twice a day but is uncertain if this is strong enough. States she was recently admitted for congestive heart failure exacerbation with him last 6 weeks and states this is similar to that time however rather than wait and so ago where she wanted to be evaluated for possible admission. Presents for further evaluation at this time. Follows with Dr. Hastings. States she has been compliant with Lasix. Denies chest pain, abdominal pain, nausea, vomiting, diarrhea. No other acute complaint at this time. Blood work completed ED reveals a WBC 5.8, hemoglobin 12.5 and platelet count of 195, sodium 138, potassium 0.3, BUN/creatinine of 18/0.68, AST/ALT elevated at 46/73 with BNP of 1800 Chest x-ray reveals acute pulmonary pulmonary disease most consistent is consistent with moderate CHF Objective - Vital Signs Vital signs: Vital Signs Temp 97.8 F 09/20/23 09:06 Pulse 60 09/20/23 09:06 Resp 16 09/20/23 09:06 BP 119/56 09/20/23 09:06 Pulse Ox 97 09/20/23 09:06 FiO2 Intake & Output 09/19/23 09/20/23 09/20/23 18:59 06:59 18:59 Intake Total 118 Balance 118 Weight 77.564 kg Intake: Oral 118 - Exam General: Appears in no acute distress. HEAD: Normal with no signs of head trauma. EYES: PERRLA, EOMI, conjunctiva normal, no discharge. ENT: Hearing grossly intact, normal oropharynx. RESPIRATORY: Clear breath sounds bilaterally. No wheezes, rales, or rhonchi. Increased dyspnea on exertion. no ambulatory hypoxia. C/V: Regular rate and rhythm. S1 and S2 auscultated, 1-2+ bilateral lower extremity symmetrical pitting edema to the level of the knee, peripheral pulses 2+ and intact throughout ABD: Abd is soft, nontender, nondistended EXT: Normal range of motion, no obvious deformity SKIN: No rashes or lesions observed on exposed skin. NEURO: Alert and oriented x 4. - Labs CBC & Chem 7: 09/20/23 06:46 09/20/23 06:46 Labs: Abnormal Lab Results - Last 24 Hours (Table) 09/19/23 09/19/23 09/20/23 Range/Units 14:26 14:26 06:46 RBC 3.70 L 3.58 L (3.80-5.40) m/uL Hgb 11.7 L (12.0-15.0) g/dL Hct 35.8 L (37.2-46.3) % MCV 100.5 H 100.0 H (80.0-100.0) fL MCH 32.7 H (27.0-32.0) pg Lymphocytes # 0.9 L 0.82 L (1.0-4.8) k/uL Anion Gap (4.00-12.00) mmol/L BUN 18 H (7-17) mg/dL AST 46 H (14-36) U/L ALT 73 H (4-34) U/L 09/20/23 Range/Units 06:46 RBC (3.80-5.40) m/uL Hgb (12.0-15.0) g/dL Hct (37.2-46.3) % MCV (80.0-100.0) fL MCH (27.0-32.0) pg Lymphocytes # (1.0-4.8) k/uL Anion Gap 12.70 H (4.00-12.00) mmol/L BUN (7-17) mg/dL AST (14-36) U/L ALT 55 H (4-34) U/L Assessment and Plan Assessment: 1. Acute exacerbation CHF - Patient will be admitted to telemetry; monitor EKG and trend troponin; patient is placed on Lasix 40 mg IV every 12 hours - We will monitor strict RESHMA's, daily weights, low salt and fluid restricted diet - Recommend 2-D echo; cardiology is consulted 2. Transaminitis; AST/ALT are elevated; likely related to statin; we will monitor liver enzymes and plan for further evaluation if liver enzymes continue to trend up 3. Mild AK I; BUN is mildly elevated; we will hold off on IV fluid hydration given exacerbation of CHF; we will monitor strict RESHMA's, daily weights, renal function Avoid nephrotoxins and hypotension 4. Hypertension; Coreg 12.5 mg twice a day 5. Hyperlipidemia; Lipitor 40 mg daily 6. Coronary artery disease; stable on beta blockers, statins and aspirin 7. Atrial fibrillation; continue with amiodarone 200 mg daily; Coreg 12.5 mg twice a day 8. Hyperglycemia/gout; allopurinol 100 mg twice a day DVT prophylaxis; SCDs CODE STATUS; full code
[2023-09-21 07:43] VITALS: BP 118/65; PULSE 57; TEMP 97.9
[2023-09-21] MEDS: ATORVASTATIN 40 MG TAB PO SCH (08:39)
[2023-09-21] MEDS: FUROSEMIDE 40 MG TAB PO SCH (08:39)
[2023-09-21] MEDS: ASPIRIN 81 MG PO SCH (08:39)
[2023-09-21] MEDS: POTASSIUM CHLORIDE ER 20 MEQ TAB.ER PO SCH (08:39)
[2023-09-21] MEDS: CHOLECALCIFEROL 25 MCG (1000 IU) TABLET PO SCH (08:40)
[2023-09-21] MEDS: allopurinoL 100 MG TAB PO SCH (08:40)
[2023-09-21] MEDS: AMIODARONE 200 MG TAB PO SCH (08:40)
[2023-09-21] MEDS: carvediloL 12.5 MG TAB PO SCH (08:40)
--- NOTE | 2023-09-23 21:04 | P.DS ---
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 elevated LFTs likely from vascular congestion had improved with lasix. History of watchman device History of GI Bleed History of coronary artery disease with prior stenting to the RCA Hx hypertension Hx hyperlipidemia Discharge Disposition Patient is stable for discharge home has been cleared by cardiology. Recommendations made for lasix to be increased to 40 mg BID. Discussed with patient monitoring daily weights keeping log and following a heart healthy diet and monitoring sodium intake. Patient has verbalized understanding. Patient has an appt this with Dr Hastings and will further discuss medication adjustments. States she was recently put back on carvedilol 12.5 mg BID but since the cardioversion her heart rate has been maintained in the 50s. Recommend to see Dr Avendano in 1 to 2 days. Hospital Course This is a 78-year-old female presents with the department for dyspnea and lower extremity edema. Has a medical history of atrial fibrillation with recent cardioversion and SARAHI on the 6th oft his month. For the last 2-3 days she has noticed increasing lower extremity symmetrical swelling, exertional shortness of breath, nonproductive cough, worsening orthopnea. States she is on Lasix 20 mg twice a day but is uncertain if this is strong enough. States she was recently admitted for congestive heart failure exacerbation and had SARAHI which revealed moderate global hypokinesis of the left ventricle with EF 35-40% mild to m oderate MR and mild TR. Patient was cardioverted to normal sinus rhythm. Follows with Dr. Hastings. States she has been compliant with Lasix. Denies chest pain, abdominal pain, nausea, vomiting, diarrhea. No other acute complaint at this time. Blood work completed ED reveals a WBC 5.8, hemoglobin 12.5 and platelet count of 195, sodium 138, potassium 0.3, BUN/creatinine of 18/0.68, AST/ALT elevated at 46/73 with BNP of 1800. Chest x-ray reveals acute pulmonary pulmonary disease most consistent is consistent with moderate CHF. Admitted to the hospital under medicine with cardiology consultation and started on IV lasix. Her LFTs improved. She has been transitioned back to oral lasix with dose increase to 40 mg BID. No longer short of breath and lower extremity edema has improved. Lungs are clear to auscultation. Cleared for discharge home. Please see medication reconciliation for a list of current medications. Thank you for allowing us to participate in the care of this patient. The impression and plan of care has been dictated by Elo Broussard, Nurse Practitioner as directed. Dr. Sunil MD I have performed a history and physical examination and medical decision making of this patient, discussed the same with the dictator, and agree with the dictators assessment and plan as written, documented as a scribe. Based on total visit time, I have performed more than 50% of this visit. Patient Condition at Discharge: Stable Plan - Discharge Summary Discharge Rx Participant: Yes New Discharge Prescriptions: New Furosemide [Lasix] 40 mg PO BID@0900,1600 #60 tab Continue Ascorbic Acid [Vitamin C] 500 mg PO DAILY Krill/Om-3/Dha/Epa/Phospho/Ast [Krill Oil 500 mg Softgel] 1 cap PO DAILY Cholecalciferol [Vitamin D3 (25 Mcg = 1000 Iu)] 25 mcg PO DAILY Potassium Chloride ER [K-Dur 20] 20 meq PO DAILY Atorvastatin Calcium 40 mg PO DAILY Elderberry Gummies(Unk) 1 tab PO DAILY carvediloL [Coreg*] 12.5 mg PO BID #180 tablet Meclizine [Antivert] 12.5 mg PO BID #30 tab allopurinoL 100 mg PO BID Aspirin 81 mg PO DAILY Acetaminophen [Tylenol Arthritis] 650 mg PO Q8H PRN PRN Reason: Pain Cranberry/Vitamin C/Vitamin D Gummies 1 tab PO DAILY Amiodarone [Cordarone] 200 mg PO DAILY Discontinued Furosemide [Lasix] 20 mg PO BID Discharge Medication List Acetaminophen [Tylenol Arthritis] 650 mg PO Q8H PRN 07/17/23 [History] Ascorbic Acid [Vitamin C] 500 mg PO DAILY 07/17/23 [History] Aspirin 81 mg PO DAILY 07/17/23 [History] Atorvastatin Calcium 40 mg PO DAILY 07/17/23 [History] Cholecalciferol [Vitamin D3 (25 Mcg = 1000 Iu)] 25 mcg PO DAILY 07/17/23 [History] Krill/Om-3/Dha/Epa/Phospho/Ast [Krill Oil 500 mg Softgel] 1 cap PO DAILY 07/17/23 [History] Potassium Chloride ER [K-Dur 20] 20 meq PO DAILY 07/17/23 [History] allopurinoL 100 mg PO BID 07/17/23 [History] Elderberry Gummies(Unk) 1 tab PO DAILY 08/13/23 [History] carvediloL [Coreg*] 12.5 mg PO BID #180 tablet 08/18/23 [Rx] Cranberry/Vitamin C/Vitamin D Gummies 1 tab PO DAILY 09/04/23 [History] Meclizine [Antivert] 12.5 mg PO BID #30 tab 09/08/23 [Rx] Amiodarone [Cordarone] 200 mg PO DAILY 09/11/23 [History] Furosemide [Lasix] 40 mg PO BID@0900,1600 #60 tab 09/21/23 [Rx] Follow up Appointment(s)/Referral(s): Tj Hastings MD [STAFF PHYSICIAN] - 09/24/23 8:30 am Jone Avendano MD [Primary Care Provider] - 1-2 days (please call for an appointment ) Ambulatory/Diagnostic Orders: Basic Metabolic Panel [LAB.AMB] Time Frame: 3 Days, Location: None Selected Complete Blood Count w/diff [LAB.AMB] Location: None Selected Patient Instructions/Handouts: Heart Failure (GEN), Low-Sodium Diet (GEN) Activity/Diet/Wound Care/Special Instructions: Monitor your weight daily and keep log for follow up with PCP and cardiology. Discharge Disposition: HOME SELF-CARE
== END 2023-09-21 14:15 | disposition home or self-care (01) ==
LOC: EC 14:02 → 6NMEDSUR 16:50
PROVIDERS: ADMIT Internal Medicine; ATTEND Internal Medicine
DX: I11.0 Hypertensive heart disease with heart failure (principal); I50.22 Chronic systolic (congestive) heart failure; I48.19 Other persistent atrial fibrillation; R74.01 Elevation of levels of liver transaminase levels; N17.9 Acute kidney failure, unspecified; I25.10 Atherosclerotic heart disease of native coronary artery without angina pectoris; E78.5 Hyperlipidemia, unspecified; G47.30 Sleep apnea, unspecified; M10.9 Gout, unspecified; Z85.51 Personal history of malignant neoplasm of bladder; Z95.0 Presence of cardiac pacemaker; Z95.5 Presence of coronary angioplasty implant and graft; Z79.82 Long term (current) use of aspirin; Z79.899 Other long term (current) drug therapy; Z82.49 Family history of ischemic heart disease and other diseases of the circulatory system
CPT/HCPCS: 96376 ×2; 96374; 99285; 36415; 93005; 83880; 80053; 80048; 80076; 83735; 84484; 85025 ×2; 85610; 85730; 71046; G0378 ×3; J1940 ×2

== ENCOUNTER → 2023-10-20 | Outpatient (CLI) | payer MEDICARE, BC ==
[2023-10-20 15:22] LABS: Blood Urea Nitrogen 12.5 mg/dL (9.0-27.0); Carbon Dioxide 29.9 mmol/L (21.6-31.8); Chloride 99 mmol/L (96-109); HCT 41.1 % (37.2-46.3); HGB 13.1 g/dL (12.0-15.0); MCH 31.9 pg (27.0-32.0); MCHC 31.9 g/dL (32.0-37.0); Mean Platelet Volume 11.8 FL (9.5-12.2); NRBC Per 100 WBC 0 X 10*3/uL (0.00-0.01); Platelet Count 222 X 10*3/uL (140-440); Potassium 4.4 mmol/L (3.5-5.5); RBC 4.11 X 10*6/uL (4.10-5.20); RDW 13.9 % (11.5-14.5); Sodium 138 mmol/L (135-145); WBC 6.38 X 10*3/uL (4.50-10.00)
== END | disposition home or self-care (01) ==
LOC: LABPAT 10:18
PROVIDERS: ATTEND Internal Medicine Clinical Cardiac Electrophysiology
DX: Z01.812 Encounter for preprocedural laboratory examination (principal); I48.0 Paroxysmal atrial fibrillation
CPT/HCPCS: 36415; 80051; 82565; 84520; 85027

== ENCOUNTER 2023-11-02 05:35 | Day surgery (SDC) | payer MEDICARE, BC ==
[~2023-11-02 05:35] MED LIST changes: +LACTATED RINGERS 1,000 ML IV SCH
[2023-11-02] MEDS ORDERED: HYDROmorphone 0.5 MG/0.5 ML SYRINGE IVP PRN (07:00)
[2023-11-02] MEDS ORDERED: MIDAZOLAM 2 MG/2 ML VIAL IV PRN (07:00)
[2023-11-02] MEDS ORDERED: ONDANSETRON 4 MG/2 ML VIAL ONE (07:19)
--- NOTE | 2023-11-02 07:54 | P.HPCAR ---
History of Present Illness This is Dr. Pagan dictating an H/P on this patient The patient was interviewed and examined IMPRESSION / ASSESSMENT: Persistent atrial fibrillation, very symptomatic with tiredness fatigue heart failure symptoms/shortness of breath Failed amiodarone and electrical cardioversion Patient has a dual-chamber pacemaker with left bundle pacing which is functioning normally She has a watchman device line. A. fib ablation 11 years back Currently on ELIQUIS, short-term preprocedure and postprocedure specifically for the ablation History of GI bleeding on xarelto Has tolerated Pradaxa and ELIQUIS Pradaxa is not available PLAN: Evaluate pulmonary veins/ablation of pulmonary veins Left atrial roof ablation HPI Patient continues to remain short of breath with exertion She does short of breath and the symptomatic with activities of daily living and minimal exertion She is able to lie flat in bed at this time no orthopnea PND No syncope no chest pain the last few days She looks comfortable She has no fever chills cough ROS: No fever chills or rigors, no cough, phlegm or expectoration, no nausea, vomiting or diarrhea, no hematuria, dysuria, no musculoskeletal complaints, no strokes or seizures, no skin lesions. EXAMINATION: 102/73 mmHg pulse rate 105 beats a minute irregular Breath sounds are clear no rhonchi no crackles Heart sounds S1 and S2 are soft and irregular No murmurs No JVD No lower extremity edema Soft abdomen REVIEW OF LABS, ECG & MEDICAL DATA hemoglobin 13 Hematocrit 41 Sodium 138, potassium 4.4 BUN 12 and creatinine 0.9 AST 31 ALT 55 NT proBNP 1800 TSH normal at 3.0 Physical Exam Vitals: Vital Signs Temp Pulse Resp BP Pulse Ox 11/02/23 06:29 97.8 F 105 H 16 102/73 97 Intake and Output 11/01/23 11/02/23 11/02/23 22:59 06:59 14:59 Other: Weight 76.3 kg Past Medical History Past Medical History: Atrial Fibrillation, Coronary Artery Disease (CAD), Cancer, Heart Failure, Hyperlipidemia, Hypertension, Osteoarthritis (OA), Sleep Apnea/CPAP/BIPAP, Syncope, Vascular Disorder Additional Past Medical History / Comment(s): Gout, heart murmur, bladder cancer 21 years ago. cannot wear the cpap machine. cardioversion 09/15/23, INTTRA loop recorder. See Dr Pagna's H & P History of Any Multi-Drug Resistant Organisms: None Reported Past Surgical History: Cardiac Ablation, Heart Catheterization With Stent, Pacemaker Additional Past Surgical History / Comment(s): bladder tumor removed, carotids stents bilaterally. 2 iliac stents , colonoscopy. Watchman device-anticoag is ASA, PPM 08/18/2023 Past Anesthesia/Blood Transfusion Reactions: Postoperative Nausea & Vomiting (PONV) Additional Past Anesthesia/Blood Transfusion Reaction / Comment(s): does not tolerate narcotics, ponv if not pre medicated Date of Last Stent Placement:: unk Type of Cardiac Device: Permanent Pacemaker Device Placement Date:: 08/14/2023 Smoking Status: Former smoker, Heavy tobacco smoker - Past Family History Father Family Medical History: Myocardial Infarction (NH) Mother Additional Family Medical History / Comment(s): alzheimer, Physical Examination Vital Signs Temp Pulse Resp BP Pulse Ox 11/02/23 06:29 97.8 F 105 H 16 102/73 97 Intake and Output 11/01/23 11/02/23 11/02/23 22:59 06:59 14:59 Other: Weight 76.3 kg Results Current Medications Generic Name Dose Route Start Last Admin Trade Name Freq PRN Reason Stop Dose Admin Hydromorphone HCl 0.5 mg 11/02/23 07:00 Hydromorphone 0.5 Mg/0.5 Ml Syringe IVP 11/02/23 23:00 Q5M PRN Phase 1 or 2 - Pain Control Sodium Chloride 1,000 mls @ 20 mls/hr 11/02/23 05:32 11/02/23 06:22 Saline 0.9% IV 12/02/23 05:33 0 mls .Q24H PHAN Administration Lactated Ringer's 1,000 mls @ 20 mls/hr 11/02/23 05:32 Lactated Ringers IV 12/02/23 05:33 .Q24H PHAN Cefazolin Sodium 2 gm/ Sodium 50 mls @ 100 mls/hr 11/02/23 07:24 Chloride IVPB 11/02/23 07:53 ONCE STA Protocol Midazolam HCl 2 mg 11/02/23 07:00 Midazolam 2 Mg/2 Ml Vial IV 11/02/23 23:00 ONCE PRN Pre-Op Anxiety Intake and Output 11/01/23 11/02/23 11/02/23 22:59 06:59 14:59 Other: Weight 76.3 kg
[2023-11-02] MEDS ORDERED: LIDOCAINE 1% INJ 10MG/ML (20 ML MDV) ONE (08:05)
[2023-11-02] MEDS ORDERED: HEPARIN SOD,PORK IN 0.45% NACL 25,000 UNIT in 0.45% NACL 1 250ML.BAG IV ONE (08:25)
[2023-11-02] MEDS ORDERED: LIDOCAINE 1% INJ 10MG/ML (20 ML MDV) SQ ONE (08:30)
[2023-11-02] MEDS ORDERED: IOPAMIDOL-370 100ML BTL INJ ONE (10:07)
[2023-11-02] MEDS ORDERED: ACETAMINOPHEN IV (For NPO) 1,000 MG in EMPTY BAG 1 BAG IVPB ONE (11:13)
[2023-11-02] MEDS ORDERED: ACETAMINOPHEN TAB 325 MG TAB PO PRN (11:13)
[2023-11-02] MEDS ORDERED: HYDROcodone/APAP 5-325MG 1 EACH TAB PO PRN (11:13)
[2023-11-02 11:23] VITALS: PULSE 60
--- NOTE | 2023-11-02 11:47 | P.EPPROC ---
- EP Procedure Note Electrophysiology Procedure Note: PROCEDURE A. fib ablation with PVA, left atrial septal ablation, left atrial roof ablation, left atrial posterior wall ablation DIAGNOSIS Persistent Atrial fibrillation, symptomatic, refractory to therapy RESULT Stable watchman device in the left atrial appendage on intracardiac echo, before and after ablation Extrinsically Compressed left superior and left inferior pulmonary veins, likely secondary to the watchman device in the baseline state Thickened pericardium with effusive/fibrinous material especially at the base of the LV and RV, representing the chronic phase of pericarditis Successful A. fib ablation/pulmonary vein isolation of all veins using cryo- ablation Ablation of the left atrial septum Ablation of the left atrial roof Ablation of the posterior wall of the LA Complete entrance block in all 4 veins confirmed No evidence for phrenic nerve injury Esophageal deflection YES Electrical cardioversion with a synchronized shock across the chest YES PROCEDURE DETAILS Written informed consent prior to procedure. Patient brought to the EP lab. General anesthesia given. Heparin administered. A city maintained above 300 seconds Both groins prepped and draped per protocol and venous sheaths placed. Esophagus intubated, circa catheter for temperature monitoring an endoscope for possible esophageal deflection. Phrenic nerve monitoring performed. Esophageal temperature monitoring performed. Esophageal deflection performed if circa catheter overlapping with the balloon or circa temperature less than 27.5C Intracardiac echocardiography performed. Pericardium evaluated. Left atrial appendage evaluated. Left atrium evaluated along with pulmonary veins Transseptal catheterization performed under fluoroscopic guidance and intracardiac echo guidance Cryoablation sheath exchanged, balloon catheter along with achieve catheter placed in the left atrium. Pulmonary veins isolated in the following sequence: Left superior pulmonary vein followed by left inferior pulmonary vein, followed by right inferior pulmonary vein and lastly right superior pulmonary vein. Phrenic nerve stimulation along with capture thresholds within the SVC and right superior pulmonary vein to identify the phrenic nerve proximity to the cryo- balloon. Pulmonary veins isolated and confirmed with entrance and exit block. Phrenic nerve integrity confirmed at the end of the procedure Ablation of the left atrial roof performed with sequential cryo lesions from the left superior to the right superior pulmonary veins. Ablation of the electrograms confirmed Ablation of the left atrial septum performed with cannulation of the inferior branch of the right superior vein to achieve ablation of the posterior septum of the left atrium. Ablation of electrograms confirmed Ablation of the mid left atrial posterior wall with ablation of electrograms confirmed Electrical cardioversion performed for persistence of atrial fibrillation despite successful ablation. Diagnostic catheters for the high right atrium, His bundle, coronary sinus placed. LA and RA pressures recorded RA pressure: 09/18/10 LA pressure: 06/05/17 Diagnostic EP study with coronary sinus pacing and recording Baseline measurements: QRS 170 ms, QT 451 ms Venous sheaths were removed and hemostasis assured with a closure device. Patient extubated and transferred to recovery Intracardiac echo at the end of the procedure revealed watchman device in stable position in the left atrial appendage PROCEDURES PERFORMED Diagnostic EP study CS pacing and recording Left and right transseptal catheterization Catheter the mapping of the tachycardia Intracardiac echocardiography Pulmonary vein isolation with transseptal and comprehensive EPS, [id number] Left atrial roof line, +[id number] Linear ablation, septum of left atrium, +[id number] Linear ablation left atrial posterior wall, class 30957 Electrical cardioversion with a synchronized shock across the chest [id number]
--- NOTE | 2023-11-02 11:50 | P.PRLE ---
RE: Ally Alvarez Dear [facility]ly [facility] Patient underwent an A. 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 That is why she has such symptomatic heart failure I have added spironolactone 25 mg by mouth daily and discontinued oral potassium to the current regimen She has a watchman device and therefore she will need only short duration of ELIQUIS for the next 2 months post left atrial ablation It can be discontinued thereafter Thank you for entrusting me with the care of the patient Warm regards Sincerely Mando Pagan
[2023-11-02] MEDS: SPIRONOLACTONE 25 MG TAB PO SCH (12:23)
[2023-11-02] MEDS: carvediloL 12.5 MG TAB PO SCH (17:26)
[2023-11-02] MEDS: APIXABAN 5 MG TAB PO SCH (21:19)
[2023-11-02] MEDS: allopurinoL 100 MG TAB PO SCH (21:19)
[2023-11-03 07:50] VITALS: BP 114/73; RESP 15; TEMP 97.8
[2023-11-03] MEDS ORDERED: ATORVASTATIN 40 MG TAB PO SCH (09:00)
[2023-11-03] MEDS ORDERED: ASPIRIN 81 MG PO SCH (09:00)
[2023-11-03] MEDS ORDERED: FUROSEMIDE 40 MG TAB PO SCH (09:00)
[2023-11-03] MEDS: carvediloL 12.5 MG TAB PO SCH (11:32)
[2023-11-03] MEDS: SPIRONOLACTONE 25 MG TAB PO SCH (12:03)
[2023-11-03] MEDS: allopurinoL 100 MG TAB PO SCH (12:03)
[2023-11-03] MEDS: APIXABAN 5 MG TAB PO SCH (12:03)
--- NOTE | 2023-11-03 14:13 | P.DS ---
Providers Attending physician: Mando Pagan Primary care physician: [facility] Course: Discharge summary Patient is doing well No chest discomfort dizziness lightheadedness or palpitations She states when she walked to the bathroom she felt a lot better and was less short of breath than usual On examination Blood pressure 114/73 mmHg pulse rate in the 60s afebrile Breath sounds are reduced bilaterally No rhonchi no crackles Normal heart sounds no murmurs Abdomen soft Extremities are warm Yesterday we had program to help to AAIR-DDDR but she has a cardiomyopathy that was noted on intracardiac echo. In addition, she has an underlying left bundle branch block pattern on twelve- lead EKG Therefore the paced [place] interval is shortened at 150/180 ms and she has a very narrow paced QRS consistent with conduction system pacing This was confirmed on twelve-lead EKG Impression Persistent symptomatic atrial fibrillation that has failed prior ablation 11 years back Failed amiodarone therapy with cardioversion Dual-chamber pacemaker with a left bundle branch block pacing lead Status post Watchman device. History of GI bleeding Plan Eliquis for 2 months post ablation and then stop. Patient has a Watchman device Continue heart failure medications but stop oral potassium Start spironolactone 25 mg p.o. daily amiodarone stopped In the future if her heart failure symptoms are better during sinus rhythm the dose of Lasix may be reduced to 20 mg p.o. daily while continuing spironolactone Consideration for dofetilide in the future if she has a recurrence of persistent atrial fibrillation She must be off amiodarone for at least 3 months prior to that and this was explained to the patient Continue current heart failure medications Patient Condition at Discharge: Stable Plan - Discharge Summary Discharge Rx Participant: No New Discharge Prescriptions: New RX: Spironolactone 25 mg PO DAILY #90 tablet Discontinued RX: Potassium Chloride ER [K-Dur 20] 20 meq PO DAILY No Action RX: Ascorbic Acid [Vitamin C] 500 mg PO DAILY RX: Krill/Om-3/Dha/Epa/Phospho/Ast [Krill Oil 500 mg Softgel] 1 cap PO DAILY RX: Cholecalciferol [Vitamin D3 (25 Mcg = 1000 Iu)] 25 mcg PO DAILY RX: Atorvastatin Calcium 40 mg PO DAILY Elderberry Gummies(Unk) 1 tab PO DAILY RX: carvediloL [Coreg*] 12.5 mg PO BID #180 tablet Apixaban [Eliquis] 5 mg PO BID Furosemide [Lasix] 40 mg PO DAILY RX: allopurinoL 100 mg PO BID RX: Aspirin 81 mg PO DAILY Cranberry/Vitamin C/Vitamin D Gummies 1 tab PO DAILY Furosemide [Lasix] 40 mg PO HS PRN PRN Reason: See Comments Discharge Medication List RX: Ascorbic Acid [Vitamin C] 500 mg PO DAILY 07/17/23 [History] RX: Aspirin 81 mg PO DAILY 07/17/23 [History] RX: Atorvastatin Calcium 40 mg PO DAILY 07/17/23 [History] RX: Cholecalciferol [Vitamin D3 (25 Mcg = 1000 Iu)] 25 mcg PO DAILY 07/17/23 [History] RX: Krill/Om-3/Dha/Epa/Phospho/Ast [Krill Oil 500 mg Softgel] 1 cap PO DAILY 07/17/23 [History] RX: allopurinoL 100 mg PO BID 07/17/23 [History] Elderberry Gummies(Unk) 1 tab PO DAILY 08/13/23 [History] RX: carvediloL [Coreg*] 12.5 mg PO BID #180 tablet 08/18/23 [Rx] Cranberry/Vitamin C/Vitamin D Gummies 1 tab PO DAILY 09/04/23 [History] Apixaban [Eliquis] 5 mg PO BID 10/27/23 [History] Furosemide [Lasix] 40 mg PO DAILY 11/02/23 [History] Furosemide [Lasix] 40 mg PO HS PRN 11/02/23 [History] RX: Spironolactone 25 mg PO DAILY #90 tablet 11/02/23 [Rx] Follow up Appointment(s)/Referral(s): Tj Hastings MD [STAFF PHYSICIAN] - 11/09/23 4:15 pm Patient Instructions/Handouts: Cardiac Ablation (DC), Electrophysiology Study (DC) Activity/Diet/Wound Care/Special Instructions: Post EP study - Ablation instructions 1. Keep access sites dry for 2 days. 2. No heavy lifting or straining for 2 days. 3. Avoid bending the hips repeatedly for 2 days. 4. You may go up and down stairs slowly Call if the following is noted 1. Bleeding, increasing swelling or pain at the access sites. 2. Increasing chest discomfort, especially upon taking a deep breath. 3. Increasing shortness of breath, at rest or with exertion. 4. Undue cough / phlegm 5. Difficulty or pain while swallowing. 6. Pain or change in color in the extremities. 7. Fever, chills, rigors. 8. Increasing headache or neurologic symptoms. 9. Dizziness, fainting, palpitations Discontinue oral potassium Start spironolactone Continue ELIQUIS for 2 months and then stop. Patient has a watchman device
== END 2023-11-03 14:20 | disposition home or self-care (01) ==
LOC: CATHEP 05:35 → 6NMEDSUR 10:15 → CATHEP 11-03 14:20
PROVIDERS: ATTEND Internal Medicine Clinical Cardiac Electrophysiology
DX: I48.19 Other persistent atrial fibrillation (principal); I11.0 Hypertensive heart disease with heart failure; I25.10 Atherosclerotic heart disease of native coronary artery without angina pectoris; I50.9 Heart failure, unspecified; I44.7 Left bundle-branch block, unspecified; G47.30 Sleep apnea, unspecified; E78.5 Hyperlipidemia, unspecified; M19.90 Unspecified osteoarthritis, unspecified site; Z79.01 Long term (current) use of anticoagulants; Z79.82 Long term (current) use of aspirin; Z79.899 Other long term (current) drug therapy; Z85.51 Personal history of malignant neoplasm of bladder; Z87.891 Personal history of nicotine dependence; Z95.0 Presence of cardiac pacemaker
CPT/HCPCS: 93656; 93657; 86900; 86901; 86850; C1894 ×2; C1769 ×3; C1760; C1730 ×2; C1759; C1893; C1766; J0690; J2405; J2001; J0131; Q9967; J1644

== ENCOUNTER → 2024-07-11 | Outpatient (CLI) | payer MEDICARE, BC ==
--- NOTE | 2024-07-12 09:42 | MM ---
Reason for Exam: Screening (asymptomatic). Last screening mammogram was performed 12 month(s) ago. Patient History: Menarche at age 13. First Full-Term at age 18. Postmenopausal. 2001, MG pre op needle loc RT on the Right side. Maternal aunt had breast cancer under age 50. Risk Values: Naty 5 year model risk: 1.3%. NCI Lifetime model risk: 2.0%. Prior Study Comparison: 03/28/2021 Bilateral MG screening mammo w CAD - 2, [place]. 07/03/2022 Bilateral MG 3D screening mammo w/cad, [facility]. 07/07/2023 Bilateral MG 3D screening mammo w/cad, [facility]. Tissue Density: The breasts are heterogeneously dense, which may obscure small masses. Findings: Analyzed By CAD. There is no suspicious group of microcalcifications or new suspicious mass in either breast. Overall Assessment: Benign, BI-RAD 2 Management: Screening Mammogram of both breasts in 1 year. . Patient should continue monthly self-breast exams. A clinical breast exam by your physician is recommended on an annual basis. This exam should not preclude additional follow-up of suspicious palpable abnormalities. Note on Naty scores and lifetime risk: 1. A Naty score greater than 3% is considered moderate risk. If this is the case, consider specialist referral to assess eligibility for a risk reducing agent. 2. If overall lifetime risk for the development of breast cancer is 20% or higher, the patient may qualify for future screening with alternating mammogram and breast MRI. [facility], , 07/12/2024 9:39 AM. Electronically signed and approved by: Zion Morales M.D. Radiologis
== END | disposition home or self-care (01) ==
LOC: RADMAMWWP 08:21
PROVIDERS: ATTEND Internal Medicine
DX: Z12.31 Encounter for screening mammogram for malignant neoplasm of breast
CPT/HCPCS: 77063; 77067

== ENCOUNTER → 2024-08-15 | Outpatient (CLI) | payer MEDICARE, BC ==
[2024-08-15 15:22] LABS: ALT 24 U/L (8-44); AST 25 U/L (13-35); Albumin 4.5 g/dL (3.8-4.9); Albumin/Globulin Ratio 1.73 Ratio (1.60-3.17); Alkaline Phosphatase 66 U/L (41-126); BUN/Creat Ratio 23.38 Ratio (12.00-20.00); Blood Urea Nitrogen 18.7 mg/dL (9.0-27.0); Carbon Dioxide 24.1 mmol/L (21.6-31.8); Chloride 99 mmol/L (96-109); Chol/HDL Ratio 3.03 Ratio; Globulin 2.6 g/dL (1.6-3.3); Glucose 106 mg/dL (70-110); LDL Cholesterol,Calculated 89.6 mg/dL (0.0-131.0); Potassium 4.6 mmol/L (3.5-5.5); Sodium 134 mmol/L (135-145); Total Bilirubin 0.5 mg/dL (0.3-1.2); Total Protein 7.1 g/dL (6.2-8.2)
[2024-08-15 15:24] LABS: NT-Pro-B-Type Natriuretic Pept 225 pg/mL (0-450)
== END | disposition home or self-care (01) ==
LOC: LABWHC1 08:28
PROVIDERS: ATTEND Internal Medicine Interventional Cardiology
DX: I50.22 Chronic systolic (congestive) heart failure (principal); E78.2 Mixed hyperlipidemia
CPT/HCPCS: 36415; 80053; 80061; 83880

== ENCOUNTER → 2025-02-03 | Outpatient (CLI) | payer MEDICARE, BC ==
--- NOTE | 2025-02-03 13:48 | BD ---
EXAMINATION TYPE: Axial Bone Density DATE OF EXAM: 02/03/2025 CLINICAL HISTORY: 79 years old Female. ICD-10 CODE: G80901 ENCOUNTER FOR SCREENING FOR OSTEOPOROSIS , Additional History: Height: 65.5 Weight: 166.5 FRAX RISK QUESTIONS: Alcohol (3 or more units per day): no Family History (Parent hip fracture): mother Glucocorticoids (More than 3mos): no (Ex: prednisone, prednisolone, methylprednisolone, dexamethasone, and hydrocortisone). History of Fracture in Adulthood: no Secondary Osteoporosis: 1. Type 1 Diabetes: no 2. Hyperthyroidism: no 3. Menopause before 45: no 4. Malnutrition: no 5. Chronic liver disease: no Rheumatoid Arthritis: no Current Tobacco Use: no RISK FACTORS HISTORY OF: Hip Fracture (Right/Left): no Spine Fracture: no History of Wrist Fracture: no Surgery to Spine/Hip(right/left)/Wrist (right/left): no MEDICATIONS: Thyroid Medications: no Osteoporosis Medications: no EXAM MEASUREMENTS: Bone mineral densitometry was performed using the [email or web address] System. Bone mineral density as measured about the Lumbar spine is: ----- L1-L4(G/cm2): 1.682 T Score Values are as follows: ----- L1: 3.6 ----- L2: 4.0 ----- L3: 4.7 ----- L4: 4.2 ----- L1-L4: 4.2 Z Score Values are as follows: ----- L1: 5.1 ----- L2: 5.5 ----- L3: 6.2 ----- L4: 5.7 ----- L1-L4: 5.7 Baseline Study Bone mineral density about the R hip (g/cm2): 0.980 Bone mineral density about the L hip (g/cm2): 1.018 T Score values are as follows: -----R Neck: -1.1 -----L Neck: -1.0 -----R Total: -0.2 -----L Total: 0.1 Z Score values are as follows: -----R Neck: 0.8 -----L Neck: 1.0 -----R Total: 1.6 -----L Total: 1.9 Baseline Study FRAX%s: The graph provided illustrates a 20.1% chance for a major osteoporotic fx and a 10.3% chance for the hips probability for fx in 10 years time. IMPRESSION: Normal (Values between +1 and -1 indicate normal bone mass). Consider repeating this study in 5 year s or sooner if there is some new clinical indication. NOTE: T-SCORE=SD OF THE YOUNG ADULT MEAN. [facility], , 02/03/2025 1:46 PM
== END | disposition home or self-care (01) ==
LOC: RADBDWWP 12:59
PROVIDERS: ATTEND Internal Medicine
DX: Z13.820 Encounter for screening for osteoporosis (principal); M85.89 Other specified disorders of bone density and structure, multiple sites
CPT/HCPCS: 77080

== ENCOUNTER 2025-04-09 10:52 | Emergency (ER) | payer MEDICARE, BC ==
--- NOTE | 2025-04-09 11:49 | ED ---
General Adult HPI - General Chief complaint: Neuro Symptoms/Deficit Stated complaint: Leg Numbness Time Seen by Provider: 04/09/25 11:22 Source: patient, RN notes reviewed Mode of arrival: ambulatory Limitations: no limitations - History of Present Illness Initial comments: 79-year-old female presents to the emergency department for evaluation of decrea sed sensation in bilateral lower extremities. She notes that this started about an hour prior to arrival. She notes that the sensory issues are from the knee down in both legs. She states that this is circumferential. She denies any dizziness or lightheadedness. She denies any headache, focal weakness, recent fever or chills. Denies any abdominal pain. Denies any loss of bowel or bladder function. Denies any saddle anesthesia. She does report a history of chronic back issues. She has followed with neurology and spine for this. - Related Data Home Medications Medication Instructions Recorded Confirmed Ascorbic Acid [Vitamin C] 500 mg PO DAILY 07/17/23 11/02/23 Aspirin 81 mg PO DAILY 07/17/23 11/02/23 Atorvastatin Calcium 40 mg PO DAILY 07/17/23 11/02/23 Cholecalciferol [Vitamin D3 (25 25 mcg PO DAILY 07/17/23 11/02/23 Mcg = 1000 Iu)] Krill/Om-3/Dha/Epa/Phospho/Ast 1 cap PO DAILY 07/17/23 11/02/23 [Krill Oil 500 mg Softgel] allopurinoL 100 mg PO BID 07/17/23 11/02/23 Elderberry Gummies(Unk) 1 tab PO DAILY 08/13/23 11/02/23 Cranberry/Vitamin C/Vitamin D 1 tab PO DAILY 09/04/23 11/02/23 Gummies Apixaban [Eliquis] 5 mg PO BID 10/27/23 11/02/23 Furosemide [Lasix] 40 mg PO DAILY 11/02/23 11/02/23 Furosemide [Lasix] 40 mg PO HS PRN 11/02/23 11/02/23 Previous Rx's Medication Instructions Recorded carvediloL [Coreg*] 12.5 mg PO BID #180 tablet 08/18/23 Spironolactone 25 mg PO DAILY #90 tablet 11/02/23 Allergies Allergy/AdvReac Type Severity Reaction Status Date / Time No Known Allergies Allergy Verified 04/09/25 10:56 Review of Systems ROS Statement: Those systems with pertinent positive or pertinent negative responses have been documented in the HPI. ROS Other: All systems not noted in ROS Statement are negative. Past Medical History Past Medical History: Atrial Fibrillation, Coronary Artery Disease (CAD), Cancer, Heart Failure, Hyperlipidemia, Hypertension, Osteoarthritis (OA), Sleep Apnea/CPAP/BIPAP, Syncope, Vascular Disorder Additional Past Medical History / Comment(s): Gout, heart murmur, bladder cancer 21 years ago. cannot wear the cpap machine. cardioversion 09/15/23, watchmen loop recorder. See Dr Pagan's H & P History of Any Multi-Drug Resistant Organisms: None Reported Past Surgical History: Cardiac Ablation, Heart Catheterization With Stent, Pacemaker Additional Past Surgical History / Comment(s): bladder tumor removed, carotids stents bilaterally. 2 iliac stents , colonoscopy. Watchman device-anticoag is ASA, PPM 08/18/2023 Past Anesthesia/Blood Transfusion Reactions: Postoperative Nausea & Vomiting (PONV) Additional Past Anesthesia/Blood Transfusion Reaction / Comment(s): does not tolerate narcotics, ponv if not pre medicated Date of Last Stent Placement:: unk Type of Cardiac Device: Permanent Pacemaker Device Placement Date:: 08/14/2023 Past Psychological History: No Psychological Hx Reported Smoking Status: Former smoker, Heavy tobacco smoker - Past Family History Father Family Medical History: Myocardial Infarction (LA) Mother Additional Family Medical History / Comment(s): alzheimer, General Exam Limitations: no limitations General appearance: alert, in no apparent distress Head exam: Present: atraumatic, normocephalic, normal inspection Eye exam: Present: normal appearance, PERRL, EOMI. Absent: scleral icterus, conjunctival injection, periorbital swelling ENT exam: Present: normal exam, mucous membranes moist Respiratory exam: Present: normal lung sounds bilaterally. Absent: respiratory distress, wheezes, rales, rhonchi, stridor Cardiovascular Exam: Present: regular rate, normal rhythm, normal heart sounds. Absent: systolic murmur, diastolic murmur, rubs, gallop, clicks GI/Abdominal exam: Present: soft, normal bowel sounds. Absent: distended, tenderness, guarding, rebound, rigid Extremities exam: Present: normal inspection, full ROM, normal capillary refill, other (Dorsal pedis pulses 2+ bilaterally). Absent: tenderness, pedal edema, joint swelling, calf tenderness Back exam: Present: tenderness Neurological exam: Present: alert, oriented X3 Psychiatric exam: Present: normal affect, normal mood Skin exam: Present: warm, dry, intact, normal color. Absent: rash Course Vital Signs 04/09/25 04/09/25 10:54 13:51 Temperature 97.5 F L 97.8 F Pulse Rate 63 65 Respiratory 18 16 Rate Blood Pressure 161/79 145/63 O2 Sat by Pulse 100 99 Oximetry Medical Decision Making - Medical Decision Making Was pt. sent in by a medical professional or institution (, PA, HOSPITAL INTERN, urgent care, hospital, or longterm...) When possible be specific @ -No Did you speak to anyone other than the patient for history (EMS, parent, family, police, friend...)? What history was obtained from this source @ -No Did you review nursing and triage notes (agree or disagree)? Why? @ -I reviewed and agree with nursing and triage notes Were old charts reviewed (outside hosp., previous admission, EMS record, old EKG, old radiological studies, urgent care reports/EKG's, longterm records)? Report findings @ -No old charts were reviewed Differential Diagnosis (chest pain, altered mental status, abdominal pain women, abdominal pain men, vaginal bleeding, weakness, fever, dyspnea, syncope, headache, dizziness, GI bleed, back pain, seizure, CVA, palpatations, mental health, musculoskeletal)? @ -Differential Musculoskeletal Muscular strain, contusion, ligament sprain, fracture, arthritis, septic arthritis, bursitis, cellulitis, muscle spasm, nerve compression, DVT, arterial occlusion, herpes zoster, electrolyte abnormality, tumor.... This is not meant to be in all inclusive list EKG interpreted by me (3pts min.). @ -EKG@1151 shows paced rhythm with a rate of 59, IN 174, QRS 146, QTQTc [id number] X-rays interpreted by me (1pt min.). @ -None done CT interpreted by me (1pt min.). @ -None done U/S interpreted by me (1pt. min.). @ -None done What testing was considered but not performed or refused? (CT, X-rays, U/S, labs)? Why? @ -None What meds were considered but not given or refused? Why? @ -None Did you discuss the management of the patient with other professionals (professionals i.e. , PA, HOSPITAL INTERN, lab, RT, psych nurse, social service liaison, clay machine operator, teacher, commissary officer, gearcase assembler)? Give summary @ -No Was smoking cessation discussed for >3mins.? @ -No Was critical care preformed (if so, how long)? @ -No Were there social determinants of health that impacted care today? How? (Homelessness, low income, unemployed, alcoholism, drug addiction, transportation, low edu. Level, literacy, decrease access to med. care, half-way, rehab)? @ -No Was there de-escalation of care discussed even if they declined (Discuss DNR or withdrawal of care, Hospice)? DNR status @ -No What co-morbidities impacted this encounter? (DM, HTN, Smoking, COPD, CAD, Cancer, CVA, ARF, Chemo, Hep., AIDS, mental health diagnosis, sleep apnea, morbid obesity)? @ -None Was patient admitted / discharged? Hospital course, mention meds given and route, prescriptions, significant lab abnormalities, going to OR and other pertinent info. @ -Discharge. Patient presents emergency department for evaluation of leg paresthesias. This is in bilateral legs below the knees. She does note a history of chronic back pain. Patient has strong distal pulses. Sensation is present in bilateral lower legs but decreased to light touch. Patient had l aboratory studies obtained including electrolytes which did not reveal hyponatremia with a sodium of 128, patient was provided IV fluids in the emergency department but this is limited as the patient has a history of CHF. Patient has a potassium of 5.2 which is slightly hemolyzed likely cause for elevation. CMP is otherwise nonactionable. No significant leukocytosis, hemoglobin 12.8. This is likely due to the patient's chronic back issues. Patient will be discharged home. She is going to follow-up with neurology and spine. She is understanding agreeable with plan. Patient stable at time of discharge. Case discussed with Dr. Hopper Undiagnosed new problem with uncertain prognosis? @ -No Drug Therapy requiring intensive monitoring for toxicity (Heparin, Nitro, Insulin, Cardizem)? @ -No Were any procedures done? @ -No Diagnosis/symptom? @ -Leg paresthesias Acute, or Chronic, or Acute on Chronic? @ -Acute Uncomplicated (without systemic symptoms) or Complicated (systemic symptoms)? @ -Uncomplicated Side effects of treatment? @ -No Exacerbation, Progression, or Severe Exacerbation? @ -No Poses a threat to life or bodily function? How? (Chest pain, USA, LA, pneumonia, PE, COPD, DKA, ARF, appy, cholecystitis, CVA, Diverticulitis, Homicidal, Suicidal, threat to staff... and all critical care pts) @ -No - Lab Data Result diagrams: 04/09/25 11:40 04/09/25 11:40 Lab Results 04/09/25 04/09/25 04/09/25 Range/Units 11:40 11:40 12:30 WBC 4.97 (4.50-10.00) 10*3/uL RBC 3.64 L (4.10-5.20) 10*6/uL Hgb 12.8 (12.0-15.0) g/dL Hct 36.2 L (37.2-46.3) % MCV 99.5 H (80.0-97.0) fL MCH 35.2 H (27.0-32.0) pg MCHC 35.4 (32.0-37.0) g/dL Plt Count 159 (140-440) 10*3/uL MPV 9.9 (9.5-12.2) fL Immature Gran % (Auto) 0.2 % Neutrophils % 65.0 % Lymphocytes % 19.3 % Monocytes % 13.1 % Eosinophils % 1.6 % Basophils % 0.8 % Immature Gran # 0.01 (0.00-0.04) 10*3/uL Neutrophils # 3.23 (1.80-7.70) 10*3/uL Lymphocytes # 0.96 (0.90-5.00) 10*3/uL Monocytes # 0.65 (0.20-1.00) 10*3/uL Eosinophils # 0.08 (0.04-0.35) 10*3/uL Basophils # 0.04 (0.00-0.10) 10*3/uL PT 10.5 (10.0-12.5) sec INR 0.9 (<1.2) APTT 20.4 L (22.0-30.0) sec Sodium 128 L (137-145) mmol/L Potassium 5.2 H (3.5-5.1) mmol/L Chloride 94 L (98-107) mmol/L Carbon Dioxide 22 (22-30) mmol/L Anion Gap 12 mmol/L BUN 16 (7-17) mg/dL Creatinine 0.55 (0.52-1.04) mg/dL Est GFR (CKD-EPI)AfAm >90 (>60 ml/min/1.73 sqM) Est GFR (CKD-EPI)NonAf 89 (>60 ml/min/1.73 sqM) Glucose 99 (74-99) mg/dL Calcium 9.3 (8.4-10.2) mg/dL Magnesium 2.1 (1.6-2.3) mg/dL Total Bilirubin 0.9 (0.2-1.3) mg/dL AST 34 (14-36) U/L ALT 28 (4-34) U/L Alkaline Phosphatase 49 (38-126) U/L Total Protein 6.7 (6.3-8.2) g/dL Albumin 4.4 (3.5-5.0) g/dL Disposition Clinical Impression: Bilateral leg paresthesia Disposition: HOME SELF-CARE Condition: Stable Additional Instructions: Please follow up with your primary care provider. Return to the emergency d epartment for new or worsening symptoms. Is patient prescribed a controlled substance at d/c from ED?: No Referrals: Francine Whitley MD [Primary Care Provider] - 1-2 days
[2025-04-09 12:06] LABS: Basophils # (A) 0.04 10*3/uL (0.00-0.10); Basophils % (A) 0.8 %; Eosinophils # (A) 0.08 10*3/uL (0.04-0.35); Eosinophils % (A) 1.6 %; HCT 36.2 % (37.2-46.3); HGB 12.8 g/dL (12.0-15.0); Lymphocytes # (A) 0.96 10*3/uL (0.90-5.00); Lymphocytes % (A) 19.3 %; MCH 35.2 pg (27.0-32.0); MCHC 35.4 g/dL (32.0-37.0); MCV 99.5 fL (80.0-97.0); Mean Platelet Volume 9.9 fL (9.5-12.2); Monocytes # (A) 0.65 10*3/uL (0.20-1.00); Monocytes % (A) 13.1 %; Neutrophils # (A) 3.23 10*3/uL (1.80-7.70); Platelet Count 159 10*3/uL (140-440); RBC 3.64 10*6/uL (4.10-5.20); RDW 13.3 % (11.5-14.5); WBC 4.97 10*3/uL (4.50-10.00)
[2025-04-09 12:16] LABS: ALT 28 U/L (4-34); African American GFR (CKD) >90 (>60 ml/min/1.73 sqM); Albumin 4.4 g/dL (3.5-5.0); Anion Gap 12 mmol/L; Blood Urea Nitrogen 16 mg/dL (7-17); Calcium 9.3 mg/dL (8.4-10.2); Carbon Dioxide 22 mmol/L (22-30); Chloride 94 mmol/L (98-107); Glucose 99 mg/dL (74-99); Non-African American GFR(CKD) 89 (>60 ml/min/1.73 sqM); Sodium 128 mmol/L (137-145); Total Bilirubin 0.9 mg/dL (0.2-1.3); Total Protein 6.7 g/dL (6.3-8.2)
[2025-04-09 12:20] LABS: Magnesium 2.1 mg/dL (1.6-2.3); Potassium 5.2 mmol/L (3.5-5.1)
[2025-04-09 12:21] LABS: AST 34 U/L (14-36); Alkaline Phosphatase 49 U/L (38-126)
[2025-04-09 13:04] LABS: INR 0.9 (<1.2); Prothrombin Time 10.5 sec (10.0-12.5)
[2025-04-09 13:12] LABS: Partial Thromboplastin Time 20.4 sec (22.0-30.0)
[2025-04-09] MEDS: SODIUM CHLORIDE 0.9% 1,000 ML IV ONE (13:13)
[2025-04-09 13:51] VITALS: BP 145/63; PULSE 65; RESP 16; TEMP 97.8
== END 2025-04-09 13:55 | disposition home or self-care (01) ==
LOC: EC 10:52
DX: R20.2 Paresthesia of skin (principal); F17.200 Nicotine dependence, unspecified, uncomplicated
CPT/HCPCS: 36415; 80053; 83735; 85025; 85610; 85730; 93005; 96360; 99284

== ENCOUNTER → 2025-05-12 | Outpatient (CLI) | payer MEDICARE, BC ==
--- NOTE | 2025-05-12 14:09 | CT ---
EXAMINATION TYPE: CT lumbar spine wo con DATE OF EXAM: 05/12/2025 1:43 PM COMPARISON: None. 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 Reconstructed images are performed in the coronal and sagittal planes. Contrast used: mL of , (none if empty) Oral contrast used: (none if empty) CT DLP: 850 mGycm, Automated exposure control for dose reduction was used. FINDINGS: Vacuum disc phenomenon is present throughout the lumbar spine excepting the L3-4 level. The re is diffuse loss of disc height throughout the lumbar spine. Vertebral body heights are preserved. Spondylosis is present. T11-T12: Mild broad-based disc bulge is present. Vacuum disc phenomenon is present. There is disc spa ce narrowing. Mild anterior thecal sac contact is present. No spinal canal stenosis is present. Neura l foramen are patent. There may be some left infrahilar foraminal narrowing from disc bulging on the left. T12-L1: No focal disc herniation or significant disc bulge is evident. No spinal canal stenosis or neural foraminal stenosis is present. L1-L2: Endplate spurring is mild anterior thecal sac compression. No AP spinal canal stenosis is pres ent. Mild right foraminal narrowing may be present. L2-L3: Endplate spurring is present with mild anterior thecal sac compression slightly right paracent ral. No AP spinal canal stenosis is present. Mild left and [id number] right foraminal narrowing is present L3-L4: Mild disc bulging is anterior thecal sac contact. No spinal canal stenosis. Mild to moderate b ilateral foraminal narrowing is present. L4-L5: No focal disc herniation or significant disc bulge is evident. Disc space narrowing is noted. No spinal canal stenosis or neural foraminal stenosis is present L5-S1: No focal disc herniation or significant disc bulge is evident. No spinal canal stenosis. Sev ere bilateral foraminal narrowing is present. Correlate for L5 radicular symptoms. Vertebral alignment appears normal. IMPRESSION: Severe bilateral foraminal narrowing L5-S1. Correlation for radicular symptoms. 2. Endplate osteophyte disc complex present with mild anterior thecal sac compression discussed above . No spinal canal stenosis present. 3. Some mild left inferior foraminal narrowing may be present at the T11-12 level [facility], Workstation: [facility], 05/12/2025 2:06 PM
== END | disposition home or self-care (01) ==
LOC: RADCTMAIN 13:13
PROVIDERS: ATTEND Internal Medicine
DX: M48.061 Spinal stenosis, lumbar region without neurogenic claudication (principal); M47.816 Spondylosis without myelopathy or radiculopathy, lumbar region
CPT/HCPCS: 72131